=== PATIENT | male | born 1940 | race Caucasian/White ===

== ENCOUNTER 2019-11-01 09:10 | Outpatient (RCR) | payer MEDICARE, OTHER, SELFPAY ==
--- NOTE | 2019-11-01 10:21 | PTOPEVAL ---
PHYSICAL THERAPY EVALUATION AND PLAN OF CARE 11-01-2019 PT evaluation completed for the diagnosis of cervical and lumbar OA. The plan of treatment is for 2x/ week for 3 weeks. Thank you for referring Gelacio to [facility]. Please review, sign, date and return this plan of care GUEVARA. I agree with and certify that the following plan of care is medically necessary. Referring Physician Date Attending Provider: Hai Levin MD *PT Outpatient Evaluation Start: 11/01/19 09:26 Document 11/01/19 09:20 RUSTY (Rec: 11/01/19 10:21 RUSTY [id number]) Outpatient Past Medical History Neurological History Hx Neurological Disorders No Significant History Cardiovascular History Hx Hypertension Yes: meds Respiratory History Hx Other Respiratory Disorders Yes: non allergic rheuritis- Gastrointestinal History Hx Bowel Surgery Yes: colon removed due to cancer, 2 yr ago Hx Gall Bladder Disease Yes: gall bladder removed Genitourinary History Hx Genitourinary Disorders No Significant History Musculoskeletal History Hx Arthritis Yes: neck,back,knees,hands, every joint pain at times Hx Back Pain Yes Hx Other Musculoskeletal Disorders Yes: problems walking due to knees weak Endocrine History Hx Endocrine Disorders No Significant History HEENT History Hx Other HEENT Disorders Yes: rhinitis--coughing,mucous ,drainage Other History Hx Cancer Yes: prostate- radiation/ colon- surgical removal Evaluation Information Problem Diagnosis neck OA, lumbar OA Onset Jul 2019 Subjective Information gradual increase in pain, Query Text:As Reported By Patient/ worse with cold weather; xrays Family in the past; chiropractor treatment in past--electrical stim, manipulation of spine- helped pain; Diagnostic Tests X-Rays For This Problem No MRI For This Problem No Other Tests For This Problem No Prior Level of Function Activity Level (Last 3 Months) Occupation retired Cooking Yes Laundry Yes Shopping Yes Driving Yes Medications Home Meds (Include: OTC, RX, Vitamins, verapamil-gout PRN,lisinopril, Herbals, Dose, Route,and Frequency) allopurinol Query Text:Home Med Entries Will No Longer Recall From Past Visits. Home Meds Must Be Re-entered With Each Visit. Home Setting Home Type House,Multiple Levels
--- NOTE | 2019-11-01 10:29 | PCPTNOTE ---
pt was 20 minutes late for PT evaluation time.
--- NOTE | 2019-11-15 13:51 | PCPTNOTE ---
Patient called & cancelled scheduled appointment this date due to Covid 19
--- NOTE | 2019-11-28 11:35 | PCPTNOTE ---
PHYSICAL THERAPY DISCHARGE 11-28-2019 Attending Provider: Hai Levin MD Patient:Gelacio Burr Jr. Date of :1940 Mr. Burr has not returned for any further treatments since the evaluation on 11/01/2019, therefore he will be discharged at this time. The goals were not assessed. Thank you for referring Gelacio to [facility]. Please review, sign, date and return this discharge summary GUEVARA. I have been updated about the patient's current status and I agree with discharge from the above service at this time. Referring Physician Date
== END 2020-01-23 12:57 | disposition home or self-care (01) ==
LOC: ANHPT 09:10
PROVIDERS: PCP Family Medicine; Visit Provider Family Medicine
DX: M47.816 Spondylosis without myelopathy or radiculopathy, lumbar region (principal); M47.812 Spondylosis without myelopathy or radiculopathy, cervical region
CPT/HCPCS: 97110; 97162

== ENCOUNTER 2020-10-24 14:01 | Inpatient (IN) | payer MEDICARE, OTHER, SELFPAY ==
[2020-10-24] VITALS (11 sets, daily range): BP systolic 126–174; BP diastolic 48–84; PULSE 74–107; RESP 18–24; TEMP 36.4–37; O2SAT 99–100; BMI 34.2
--- NOTE | ~2020-10-24 | XR_ITS ---
EXAMINATION: XR chest 2V EXAM DATE: 10/24/2020 14:33 INDICATION: Chest pain 2 times a day. TECHNIQUE: Frontal and lateral projections of the chest obtained and reviewed. Comparison is made to prior examination from 07/20/2015. FINDINGS: Scattered regions of post infectious residua. Moderate chronic hyperinflation. No confluen t consolidation, pneumothorax or pleural effusion suspected. There are bony degenerative changes. The re is aortic arteriosclerosis. IMPRESSION: No acute cardiopulmonary findings. Reviewed, dictated and finalized at location A. PARK ATTENDANT
--- NOTE | ~2020-10-24 | US_ITS ---
EXAMINATION: US venous doppler [facility] DATE: 10/24/2020 17:42 INDICATION: Lower limb swelling TECHNIQUE: Ram scale images without and with compression and Doppler images of the bilateral lower e xtremity veins were obtained. COMPARISON: 01/08/2015 FINDINGS: The right common femoral vein, profunda femoral vein, femoral vein, popliteal vein, peroneal trunk, p osterior tibial veins, and greater saphenous vein are patent. The left common femoral vein, profunda femoral vein, femoral vein, popliteal vein, peroneal trunk, po sterior tibial veins, and greater saphenous vein are patent. A 3.4 cm Albright cyst is noted in the left popliteal fossa. IMPRESSION: 1. Patent bilateral lower extremity veins. No evidence of deep venous thrombosis. Reviewed, dictated and finalized at location A. OLEUM GEOLOGY FACULTY MEMBER IMPRESSION: 1. Patent bilateral lower extremity veins. No evidence of deep venous thrombosi s.
--- NOTE | ~2020-10-24 | US_ITS ---
EXAMINATION: US renal BI EXAM DATE: 10/25/2020 13:01 INDICATION: Elevated BUN/creatinine. TECHNIQUE: Multiple grayscale and Doppler images of the kidneys were obtained (by a technologist who performed the scan) and subsequently reviewed. Comparison is made to prior examination from 5. FINDINGS: There is bilateral renal cortical thinning, moderate cortical atrophy with large fatty hilu m. Right kidney: There is normal contour and echogenicity. It measures 10.0 x 5.3 x 5.0 centimeters. T here are no focal renal lesions identified. There is no hydronephrosis. Left kidney: There is normal contour and echogenicity. It measures 10.4 x 4.9 x 5.4 centimeters. Th ere are no focal renal lesions identified. There is no hydronephrosis. Bladder unremarkable. IMPRESSION: 1. Bilateral renal cortical thinning, atrophy. 2. No hydronephrosis. Reviewed, dictated and finalized at location A. ASSEMBLER
--- NOTE | 2020-10-24 14:03 | ED.CHESTPAIN ---
HPI - Chest Pain General Chief Complaint: Chest Pain Stated Complaint: cp Time Seen by Provider: 10/24/20 14:02 History of Present Illness HPI narrative: 80 yo male presents to the ED with chest pain. He reports that he has had intermittent left sided chest pain for more than one year. It was previously isolated to a very small at the lower left sternal border and the intensity was 2/10. Over the past few days it has spread out and the intensity has increased to 5/10. It is worse with activity, especially anything involving the upper body. No SOB, fever, cough. Related Data Home Medications Medication Instructions Recorded Confirmed acetaminophen 500 mg tablet 500 mg PO DIRECTED tablet 09/30/20 09/30/20 cholecalciferol (vitamin D3) 25 25 mcg PO DAILY 09/30/20 09/30/20 mcg (1,000 unit) capsule lisinopril 10 mg tablet 10 mg PO DAILY 09/30/20 09/30/20 pantoprazole 40 mg tablet,delayed 40 mg PO DAILY tablet 09/30/20 09/30/20 release verapamil 120 mg tablet 120 mg PO DAILY 09/30/20 09/30/20 Allergies Allergy/AdvReac Type Severity Reaction Status Date / Time codeine Allergy Unknown constipatio Verified 10/24/20 14:11 n ciprofloxacin AdvReac Unknown HE STATED Verified 10/24/20 14:11 HE HAD SOMETHING PRE OP AND WENT INTO SHOCK Review of Systems Review of Systems: All systems reviewed & are unremarkable except as noted in HPI and below Constitutional: Constitutional: Denies chills, Denies fever(s) and Denies weakness Eyes: Eyes: Reports no additional eye complaints ENT: Denies sore throat Cardiovascular: Cardiovascular: Reports chest pain and Denies radiating jaw, neck or arm pain Respiratory: Respiratory: Denies cough and Denies dyspnea Gastrointestinal: Gastrointestinal: Denies abdominal pain, Denies nausea and Denies vomiting Genitourinary: Genitourinary: Denies hematuria and Denies dysuria Musculoskeletal: Musculoskeletal: Denies back pain Neurologic: Denies confusion, Denies dizziness and Denies weakness [facility] Past Medical History Medical History (Updated 10/24/20 @ 16:41 by Zacarias Alvarado MD) Essential hypertension H/O colon cancer, stage I Malignant neoplasm of prostate Family History Family History (Updated 09/30/20 @ 10:30 by Camila Arana) Father Family history of lung cancer Father , Cancer No problems noted. Other Family history of dementia Social History Social History (System 10/18/19 @ 13:23 by Carolina Dumont) Smoking status: Former smoker Smoking end date: 08/23/99 Alcohol intake: current Gender identity (if verbalized by the patient): Male Exam Const: General: no acute distress and alert Nutritional Appearance: well nourished Orientation/consciousness: patient oriented x3 HENMT: Head: normal to inspection Neck: Neck: normal visual inspection Chest: Chest palpation & inspection: tenderness sternum Resp: Effort & Inspection: normal respiratory effort Auscultation: clear to auscultation bilaterally Cardio: Rate: regular rate Rhythm: regular rhythm GI: GI Palp: Yes Soft to palpation and No Tenderness to palpation present (GI) Skin: General skin exam: normal color Neuro: General: patient oriented x3, moves all extremities, no focal motor deficits and CN's II-XI intact bilaterally Speech: normal speech Extrem: General: edema bilateral (mild) Course Vital Signs Vital signs: Vital Signs Temperature 37.0 C 10/24/20 14:02 Pulse Rate 103 H 10/24/20 14:02 Respiratory Rate 18 10/24/20 14:02 Blood Pressure 174/57 H 10/24/20 14:02 Pulse Oximetry 100 10/24/20 14:02 Temperature 37.0 C 10/24/20 14:02 Pulse Rate 75 10/24/20 16:11 Respiratory Rate 20 10/24/20 16:11 Blood Pressure 126/48 L 10/24/20 15:47 Pulse Oximetry 99 10/24/20 15:47 MDM - Chest Pain MDM Narrative Medical decision making narrative: RANDI. significantly elevated potassium. Treatemnt a
--- NOTE | 2020-10-24 14:09 | ECG_ITS ---
Measurements Intervals [place] Rate: 93 P: 65 SD: 168 QRS: -61 QRSD: 137 T: 51 QT: 370 QTc: 462 Interpretive Statements SINUS RHYTHM ATRIAL AND VENTRICULAR PREMATURE COMPLEXES RIGHT BUNDLE BRANCH BLOCK LEFT ANTERIOR FASCICULAR BLOCK BASELINE ARTIFACT- AVF ABNORMAL ECG Electronically Signed On 10-24-2020 14:33:59 [employer] by Adrian Flor D.O.
[2020-10-24 14:55] LABS: Basophils Absolute Auto 0.1 K/mm3 (0.0-0.1); Basophils Percent Auto 1.3 % (0.2-1.2); Eosinophils Absolute Auto 0.1 K/mm3 (0-0.3); Eosinophils Percent Auto 1.7 % (0-4.4); Hematocrit 36.3 % (42.0-52.0); Hemoglobin 12.2 g/dL (14.0-18.0); Immature Granulocyte Absolute 0.06 K/mm3 (0.00-0.031); Lymphocytes Absolute Auto 1.27 K/mm3 (0.9-3.2); Lymphocytes Percent Auto 21.3 % (18.3-44.2); Mean Corpuscular HGB Conc 33.6 g/dl (32-36); Mean Corpuscular Hemoglobin 32.2 pg (26-34); Mean Corpuscular Volume 95.8 fl (80-100); Mean Platelet Volume 9.8 fl (7.4-10.4); Monocytes Absolute Auto 0.5 K/mm3 (0.1-0.6); Monocytes Percent Auto 7.5 % (2.6-8.5); Neutrophils Percent Auto 67.2 % (45.5-73.1); Platelet Count Result 203 k/mm3 (150-375); Red Blood Count 3.79 M/mm3 (4.6-6.20); Red Cell Distribution Width 13.2 % (11.5-14.5)
[2020-10-24 15:40] LABS: Prothrombin Time 13.6 Seconds (11.1-14.7)
[2020-10-24 15:41] LABS: Partial Thromboplastin Time 29.2 SECONDS (22.3-36.8)
[2020-10-24 15:44] LABS: Anion Gap 3 mmol/L (8-16); Blood Urea Nitrogen 43 mg/dL (9-20); Calcium 9.2 mg/dL (8.4-10.2); Carbon Dioxide 23 mmol/L (22-30); Chloride 112 mmol/L (98-107); Estimated Glomerular Filt Rate 26; Glucose 127 mg/dL (75-110); Potassium 6.1 mmol/L (3.4-5.0); Sodium 138 mmol/L (137-145)
[2020-10-24 15:54] LABS: Troponin I < 0.012 ng/mL (0.000-0.034)
[2020-10-24] MEDS: ALBUTEROL SULFATE NEB 2.5 MG/0.5 ML INH 10 MG INHALATION (16:09)
[2020-10-24] MEDS: DEXTROSE 50% 25 GM/50 ML SYRINGE IV PUSH (16:13)
[2020-10-24] MEDS: INSULIN HUMAN REGULAR (*BKC) 100 UNITS/ML 10 UNITS IV PUSH (16:13)
[2020-10-24] MEDS: CALCIUM GLUCONATE 1,000 MG/10 ML VIAL 1000 MG IV PUSH (16:14)
[2020-10-24] MEDS: SODIUM POLYSTYRENE SULFONONATE 15 GM/60 ML BTL PO (16:14)
--- NOTE | 2020-10-24 17:15 | PC.NURSE ---
Pt taken to ultrasound at this time
--- NOTE | 2020-10-24 18:28 | ADMGEN ---
This patient, Gelacio Burr Jr., was admitted to IMU Room 206-01. Patient/family oriented to hospital policies and general routines including ID bracelet, bed and alarms, visiting hours, pain management, procedures, bathroom and other care routines, personal items, smoking policy, room service/diet, and visiting hours. Information on how to activate the Rapid Response Team has been discussed. Patient/Family are encouraged to report perceived risks to care and to ask questions if they do not understand what they are told or what they should do.
--- NOTE | 2020-10-24 18:30 | PM.IMHP ---
H&P: HPI History of Present Illness Date/Time: 10/24/20 18:30 Chief Complaint: Chest pain. Narrative: This is a 80-year-old male with hypertension, chronic kidney disease stage 4, gout, and hypertension who presented to the emergency department earlier today via EMS from home for evaluation of chest pain. He admits to having sporadic midsternal chest discomfort for several months which is fleeting in nature, typically lasting 1 minutes or less before resolving without intervention. Over the last day and a half for so it has been a constant ?ache? in the same region and thus he came in for evaluation. He gives no alleviating factors and reports no help with Tylenol yesterday. It is worse with palpation on exam. He denies associated symptoms, specifically denying nausea, vomiting, sweats, and shortness of breath. He also denies pleuritic pain, palpitations, and racing heart however he has had several episodes of tachycardia into the 130s of which he is completely asymptomatic. He has no known history of cardiac disease, dysrhythmia, or thyroid disease. Of note, the patient's potassium was 6.1 on arrival to the emergency department and with further questioning he mentions that his lisinopril dose was cut in half recently and he was told to follow a low-potassium diet of which she states compliance. Review of Systems Review of Systems: Narrative: Twelve systems are reviewed with pertinent positives and negatives as per HPI. No syncope or near syncope. He has occasional ?gas pains? that improved with belching. He denies overt GERD and heartburn. No history of peptic ulcers. No recent cold or flu symptoms. Denies dysuria. No change in urine output. He has chronic lower extremity edema which is unchanged. Except as documented, all other systems were reviewed and are negative. [facility] Past Medical History Medical History (Updated 10/24/20 @ 22:22 by Selena Sol PA-C) Adenocarcinoma of cecum (~10/2016) Status post right hemicolectomy. Arthritis Chronic anemia Chronic kidney disease, stage 4 (severe) GFR of 28 in February 2020. Chronic rhinitis Essential hypertension Gastroesophageal reflux disease Gout Malignant neoplasm of prostate (~2008) Status post radiation. Shingles (~05/2020) Surgical History Surgical History History of laparoscopic cholecystectomy (~06/2015) History of right hemicolectomy (~11/2016) Family History Family History Father Family history of lung cancer Father , Cancer No problems noted. Other Family history of dementia Social History Social History (Updated 10/24/20 @ 22:20 by Selena Sol PA-C) Social History: Surrogate decision maker: Milagro Burr, sister. Code status: Full code. Smoking packs per day: 2 Smoking cigarettes per day: 40.0 Years smoked: 40 Smoking pack-years: 80.00 Smoking status: Former smoker Tobacco type: cigarettes Smoking end date: 08/23/99 Alcohol intake: current Drinks per week: 2 Substance use: never Additional living arrangements comments: Lives alone in [place]. Additional occupation/education comments: Retired. Gender identity (if verbalized by the patient): Male Spiritual care concerns: No Meds Home Medications and Allergies Home Medications Medication Instructions Recorded Confirmed Type lisinopril 10 mg tablet 10 mg PO DAILY 09/30/20 10/24/20 History pantoprazole 40 mg tablet,delayed 40 mg PO DAILY tablet 09/30/20 10/24/20 History release verapamil 120 mg PO DAILY 10/24/20 10/24/20 History Allergies Allergy/AdvReac Type Severity Reaction Status Date / Time codeine Allergy Unknown constipatio Verified 10/24/20 14:11 n ciprofloxacin AdvReac Unknown HE STATED Verified 10/24/20 14:11 HE HAD SOMETHING PRE OP AND WENT INTO SHOCK
--- NOTE | 2020-10-24 19:21 | ECG_ITS ---
Measurements Intervals [place] Rate: 92 P: VT: 0 QRS: -61 QRSD: 133 T: 52 QT: 372 QTc: 462 Interpretive Statements SINUS RHYTHM VENTRICULAR PREMATURE COMPLEXES RIGHT BUNDLE BRANCH BLOCK LEFT ANTERIOR FASCICULAR BLOCK BASELINE ARTIFACT- I, II, III, AVR, AVL, AVF, V1-V3 ABNORMAL ECG Electronically Signed On 10-25-2020 6:52:24 [employer] by Adrian Flor D.O.
[2020-10-24 19:28] LABS: Potassium 4.4 mmol/L (3.4-5.0)
[2020-10-24 19:36] LABS: Alanine Aminotransferase 16 U/L (4-50); Albumin Level 4.3 g/dL (3.5-5.1); Alkaline Phosphatase 79 U/L (38-126); Anion Gap 13 mmol/L (8-16); Aspartate Amino Transferase 23 U/L (17-59); Bilirubin,Total 0.7 mg/dL (0.2-1.3); Blood Urea Nitrogen 44 mg/dL (9-20); Calcium 10.3 mg/dL (8.4-10.2); Carbon Dioxide 18 mmol/L (22-30); Chloride 112 mmol/L (98-107); Estimated CRCL calculation 30 ml/min; Estimated Glomerular Filt Rate 28; Glucose 115 mg/dL (75-110); Magnesium 1.2 mg/dL (1.6-2.3); Sodium 143 mmol/L (137-145)
[2020-10-24 19:40] LABS: Troponin I 0.012 ng/mL (0.000-0.034)
[2020-10-24 22:29] LABS: Troponin I 0.012 ng/mL (0.000-0.034)
[2020-10-25] VITALS (19 sets, daily range): BP systolic 111–148; BP diastolic 41–65; PULSE 58–96; RESP 14–20; TEMP 36–36.4; O2SAT 97–100
--- NOTE | 2020-10-25 | ECHO_ITS ---
Patient Info Name: Gelacio Burr Age: 80 years : 1940 Gender: Male Ht: 70 in Wt: 235 lbs BSA: 2.33 m2 HR: 71 bpm BP: 116 / 47 mmHg Heart Rhythm: Sinus Rhythm Technical Quality: Good Exam Date: 10/25/2020 8:01 AM Exam Location: [facility] Pulmonary Patient Status: Outpatient Admit Date: 10/24/2020 Staff Ordering Physician: Selena Sol PA-C Sales Marketing Manager: Miguel Ángel Roberts, DAVDI, RT Attending Provider: Doug Kirk MD Referring Physician: Ebenezer ZULETA; Exam Type: CA echo doppler color flow Study Info Indications I10 - Essential (primary) hypertension R07.89 - Other chest pain Complete two-dimensional, color flow and Doppler transthoracic echocardiogram is performed with contrast to opacify the left ventricle and to improve the deliniation of the left ventricle endocardial borders. Strain analysis performed. Summary 1. There is mild concentric increased left ventricular wall thickness. 2. Left ventricular systolic function is normal, estimated at 65-70%. 3. Right ventricular chamber dimension is severely enlarged. 4. Definity contrast used to improve visualization. 5. Mild biatrial enlargement. 6. Sclerotic aortic valve which is not stenotic. Left Ventricle Left ventricular chamber dimension is normal. Left ventricular systolic function is normal, estimated at 65-70%. There is mild concentric increased left ventricular wall thickness. The left ventricular diastolic function is grade I diastolic dysfunction. Definity contrast used to improve visualization. Right Ventricle Right ventricular chamber dimension is severely enlarged. Left Atria Left atrial chamber dimension is mildly enlarged. Right Atria Right atrial chamber dimension is mildly enlarged. Aortic Valve The aortic valve is trileaflet. There is mild aortic valve sclerosis. Pulmonic Valve The pulmonic valve is not well visualized. Mitral Valve The mitral valve has normal leaflets. The mitral valve annulus is mildly calcified. Tricuspid Valve The tricuspid valve leaflets are not well visualized. Pericardium/Pleural The pericardium appears normal. Aorta The aortic root size at the sinus of Valsalva is normal. Left Ventricular Outflow Tract Name Value Normal LVOT 2D LVOT Diameter 2.1 cm LVOT Doppler LVOT Peak Gradient 3 mmHg LVOT Mean Gradient 1 mmHg LVOT VTI 22 cm LVOT VTI/AV VTI Ratio 0.8 LVOT Stroke Volume 74 ml LVOT CO 5.5 l/min LVOT CI 2.4 l/min/m2 Mitral Valve Name Value Normal MV Doppler MV Decel [place] 214 cm/s2 MV PHT 83 ms MV Area (PHT) 2.
[2020-10-25 05:16] LABS: Anion Gap 7 mmol/L (8-16); Blood Urea Nitrogen 41 mg/dL (9-20); Calcium 8.9 mg/dL (8.4-10.2); Carbon Dioxide 22 mmol/L (22-30); Chloride 111 mmol/L (98-107); Estimated CRCL calculation 29 ml/min; Estimated Glomerular Filt Rate 26; Glucose 107 mg/dL (75-110); Potassium 5.2 mmol/L (3.4-5.0); Sodium 140 mmol/L (137-145)
[2020-10-25 08:08] LABS: Magnesium 1.2 mg/dL (1.6-2.3)
[2020-10-25] MEDS: PERFLUTREN LIPID MICROSPHERES 1.5 ML VIAL DILUTED TO 10 ML TOTAL VOLUME IV PUSH (08:32)
[2020-10-25] MEDS: VERAPAMIL HCL ER 120 MG TABLET PO (08:45)
[2020-10-25] MEDS: HEPARIN SODIUM 5,000 UNITS/ML VIAL 5000 UNITS SUB-Q (08:45)
[2020-10-25] MEDS: PANTOPRAZOLE 40 MG TABLET PO (08:45)
--- NOTE | 2020-10-25 12:00 | PM.CNCAR ---
Assessment and Plan Additional Plan 80-year-old man with: Intermittent chest pain which is occurred in a somewhat chronic fashion. It had a more prolonged episode last night which prompted him to come to the emergency room. This is atypical of angina and there is no evidence of acute coronary syndrome. He also has asymptomatic paroxysmal atrial fibrillation. Long conversation with the patient in the consultation about the nature of this arrhythmia and the concerns. He has been unaware of this in the past and there has been no treatment started for this as of the time of this consultation. I am going to initiate treatment with sotalol 80 mg q.12 hours and start him on renally adjusted apixaban. His echocardiogram apparently has been done this morning I will have a chance to review that later. Anticipate keeping him in the hospital another 36-48 hours or so to ensure that he is not proarrhythmic to sotalol and assess his response to it. Josue Hernandez MD [facility] History of Present Illness History of Present Illness Consult date/time: 10/25/20 12:00 Consult reason: atrial fibrillation Reason For Visit: afib rvr Narrative: This is a 80-year-old man I am seeing today at the request of the hospitalist because of intermittent tachy arrhythmias noticed following admission to the hospital last evening. The patient came to [facility] Emergency Room last night from his home primarily because of chest pain. He says that the chest pain that he came in with has actually been going on for a long time possibly as long as a couple of years. He states that he has brief episodes of sharp central to sometimes left-sided chest pain that occurs if he takes a deep breath and or moves his trunk from side to side. He states he was not too concerned about this is that has been a chronic issue but last night he had an episode that was more prolonged and did not subside and so he came to the emergency department for evaluation. In the ED his electrocardiogram does not show any evidence of acute coronary syndrome. He has a sinus mechanism with bifascicular block but no acute ST segment changes. His troponin levels do not show any evidence of an acute coronary syndrome. They are slightly elevated but he does have chronic kidney disease. Since admission to the hospital however was noticed that at times he was tachycardic and for that reason I was consulted to see him today. The 12 lead EKGs on the chart demonstrates sinus mechanism but I did review the rhythm strips in detail and when he is tachycardic he is irregular and the rhythm strip appears to show evidence of atrial fibrillation. At the moment he is in sinus rhythm for a good deal of last night it appears he was in AFib with RVR. With respect to his arrhythmia he is not really symptomatic of this he is not aware of the tachycardia or palpitations or experiencing any other symptomatology when he is in it. He has never been told to have atrial fibrillation in the past he has really never been informed of any specific cardiac problem in the past. He does see a PCP for treatment of hypertension he also has chronic renal insufficiency which he has been told is probably the result of hypertension. His home medical regimen has consisted of lisinopril and verapamil for this. His verapamil has been continued in the hospital the lisinopril has been not resumed as of now. In this setting I am asked to see him in consultation. He offers no other complaints. He is a single man that is otherwise relatively active at his advanced age he maintains his own household activities not noticed any exertional chest pain pressure heaviness no sense of orthopnea PND edema palpitations or syncope. Review of Systems Constitutional: Constitutional: Reports no additional constitutional complaints Eyes: Eyes: Reports no additional eye complaints ENT: Reports system reviewed and no additional complaints, except as documented Cardiova
[2020-10-25] MEDS: SOTALOL HCL 80 MG TABLET PO ×2 (12:41→20:13)
--- NOTE | 2020-10-25 15:43 | PM.IMPN ---
Progress Note: A&P Assessment and Plan (1) Atypical chest pain: Code(s): R07.89 - Other chest pain Status: Acute Assessment and Plan: He has had sporadic test pain for quite some time although it has been constant for the last day, reproducible on exam. Monitor on telemetry overnight. Continue to trend troponins. Echocardiogram in a.m. 10/25/20 15:43 patient is 80-year-old male presented emergency department with complaint left-sided chest pain is found to have several episodes of tachycardia however patient is unable to feel the palpitation and has no complaint shortness of breath or dizziness other than complaint of chest which is chronic and persistent, and was seen by commodity industry analyst and suspect asymptomatic proximal atrial fibrillation and started the patient on sotalol 80 mg every 12 hours and and anticoagulation with Eliquis, Patient 3 sets of cardiac enzymes are negative and cardiac echo is pending, patient with a chronic kidney disease ultrasound showed cortical thickening and atrophy will consult direct support professional home health for further recommendation (2) Hyperkalemia: Code(s): E87.5 - Hyperkalemia Status: Acute Assessment and Plan: I reviewed his previous PCPs notes, the patient was post be on a low-potassium diet. Follow-up BMP 1 hour post treatment of hyperkalemia. Lisinopril on hold at this time. (3) Chronic kidney disease, stage 4 (severe): Code(s): N18.4 - Chronic kidney disease, stage 4 (severe) Status: Inactive Assessment and Plan: Previous primary care provider had documented CKD with a GFR of 28 in February 2020. GFR today is 26. Given above documentation, I suspect that he is at his baseline. Lisinopril has been placed on hold and should probably be discontinued given the hyperkalemia. (4) Essential hypertension: Code(s): I10 - Essential (primary) hypertension Status: Acute Assessment and Plan: Blood pressures were reviewed and they are not ideally controlled. Continue verapamil. Lisinopril on hold as detailed above. Trend blood pressures overnight; he will likely need another antihypertensive. (5) Gastroesophageal reflux disease: Code(s): K21.9 - Gastro-esophageal reflux disease without esophagitis Status: Inactive Assessment and Plan: No acute issues. Continue pantoprazole. (6) Paroxysmal tachycardia: Code(s): I47.9 - Paroxysmal tachycardia, unspecified Status: Acute Assessment and Plan: Patient is asymptomatic but does have episodes of tachycardia to the 130s. Check TSH and obtain cardiology consult. Subjective Date/time seen: 10/25/20 15:43 patient is 80-year-old male presented emergency department with complaint left-sided chest pain is found to have several episodes of tachycardia however patient is unable to feel the palpitation and has no complaint shortness of breath or dizziness other than complaint of chest which is chronic and persistent, and was seen by commodity industry analyst and suspect asymptomatic proximal atrial fibrillation and started the patient on sotalol 80 mg every 12 hours and and anticoagulation with Eliquis, Patient 3 sets of cardiac enzymes are negative and cardiac echo is pending, patient with a chronic kidney disease ultrasound showed cortical thickening and atrophy will consult direct support professional home health for further recommendation Review of Systems Review of Systems: All systems reviewed & are unremarkable except as noted in HPI and below Exam Narrative: Exam Narrative: Elderly frail Patient is comfortable, NAD HEENT: eyes are clear and none icteric LUNGS:CTA HEART: RR S1S2 ABD: BS+, Soft and nontender Lower extremities: no edema SKIN: nonjaundiced Neuro: grossly intact. Objective Data Vital Signs Vital Signs: Vital Signs - 24 hr 10/24/20 15:47 10/24/20 16:11 10/24/20 16:15 Temperature Pulse Rate 74 75 75 Respiratory Rate 18 20 20 Blood Pressure 126/48 L Pul
[2020-10-25] MEDS: APIXABAN 2.5 MG TABLET PO (20:13)
[2020-10-25] MEDS: MAGNESIUM SULF 2 GM/WATER 50ML 2 GM/50 ML BAG IVPB (23:29)
[2020-10-26] VITALS (20 sets, daily range): BP systolic 104–133; BP diastolic 48–97; PULSE 48–73; RESP 16–24; TEMP 36.3–36.9; O2SAT 97–100
[2020-10-26 05:32] LABS: Hematocrit 32.1 % (42.0-52.0); Hemoglobin 10.7 g/dL (14.0-18.0); Mean Corpuscular HGB Conc 33.3 g/dl (32-36); Mean Corpuscular Volume 96.1 fl (80-100); Mean Platelet Volume 8.9 fl (7.4-10.4); Platelet Count Result 161 k/mm3 (150-375); Red Blood Count 3.34 M/mm3 (4.6-6.20); White Blood Count 5.8 K/mm3 (4.5-10.0)
[2020-10-26 05:46] LABS: Albumin Level 3.2 g/dL (3.5-5.1); Anion Gap 6 mmol/L (8-16); Blood Urea Nitrogen 49 mg/dL (9-20); Calcium 8.9 mg/dL (8.4-10.2); Carbon Dioxide 21 mmol/L (22-30); Chloride 111 mmol/L (98-107); Estimated CRCL calculation 28 ml/min; Estimated Glomerular Filt Rate 25; Glucose 96 mg/dL (75-110); Magnesium 1.1 mg/dL (1.6-2.3); Phosphorus 3.9 mg/dL (2.5-4.5); Sodium 138 mmol/L (137-145)
[2020-10-26] MEDS: SOTALOL HCL 80 MG TABLET PO ×2 (09:01→20:15)
[2020-10-26] MEDS: PANTOPRAZOLE 40 MG TABLET PO (09:02)
[2020-10-26] MEDS: APIXABAN 2.5 MG TABLET PO ×2 (09:02→20:15)
--- NOTE | 2020-10-26 09:22 | PM.PNCARD ---
Progress Note: A&P Additional Plan 80-year-old man with hypertension and paroxysmal atrial fibrillation with which he appears to be essentially asymptomatic. He is now anticoagulated in taking sotalol for antiarrhythmic treatment. I did stop the verapamil that he was taking at home. Hypertension is for the moment very well controlled with just the sotalol. Plan to keep him in the hospital about another 24 hours a discharge tomorrow morning if there is no evidence of any proarrhythmia Josue Hernandez MD [facility] Subjective Date/time seen: Date of service: 10/26/20 09:22 Interval history: Follow-up visit in this 80-year-old man with: Paroxysmal atrial fibrillation which appears to be essentially asymptomatic. Patient was started on sotalol yesterday is maintaining sinus rhythm also started on renally dose adjusted apixaban. Patient has atypical chest wall pain which was the principal reason for his admission to the hospital this is not ischemic chest pain and I do not plan on conducting ischemia workup. Exam Const: General: comfortable and no acute distress Other: Pleasant man asymptomatic asking when he can be discharged HENMT: Mouth: Yes moist mucous membranes Eyes: Sclera: sclerae normal Pupils: Equal, round and reactive pupils present Neck: Neck: supple and no JVD Thyroid: thyroid normal Resp: Effort & Inspection: normal respiratory effort Auscultation: clear to auscultation bilaterally Cardio: Rate: regular rate Rhythm: regular rhythm GI: GI Palp: Yes Soft to palpation Auscultation: normal bowel sounds Skin: General skin exam: normal color Neuro: Cognition (Neuro): normal cognition Extrem: General: normal to inspection Objective Data Vital Signs Vital Signs: Vital Signs - 24 hr 10/25/20 10:00 10/25/20 12:00 10/25/20 12:41 Temperature 36.4 C L Pulse Rate 92 76 96 Respiratory Rate 20 Blood Pressure 148/58 H Pulse Oximetry 100 10/25/20 14:00 10/25/20 16:00 10/25/20 17:49 Temperature 36.2 C L Pulse Rate 58 L 58 L 60 Respiratory Rate 16 Blood Pressure 124/49 L Pulse Oximetry 99 10/25/20 20:00 10/25/20 20:13 10/25/20 21:56 Temperature 36.0 C L Pulse Rate 61 59 L 64 Respiratory Rate 18 Blood Pressure 111/65 Pulse Oximetry 97 10/25/20 23:32 10/25/20 23:40 10/26/20 00:00 Temperature 36.4 C L Pulse Rate 58 L 58 L 53 L Respiratory Rate 16 16 Blood Pressure 114/41 L Pulse Oximetry 99 99 10/26/20 01:46 10/26/20 03:38 10/26/20 03:40 Temperature 36.3 C L Pulse Rate 54 L 48 L 48 L Respiratory Rate 24 H 22 H Blood Pressure 109/48 L Pulse Oximetry 97 97 10/26/20 04:00 10/26/20 06:00 10/26/20 09:01 Temperature Pulse Rate 51 L 73 55 L Respiratory Rate Blood Pressure Pulse Oximetry Intake/Output Intake/Output: Intake & Output 10/23/20 10/24/20 10/25/20 10/26/20 23:59 23:59 23:59 23:59 Intake Total 1380 300 Output Total 580 Balance 1380 -280 Meds/Results Medications: Active Medications Generic Name Dose Route Start Last Admin Trade Name Roscoeq PRN Reason Stop Dose Admin Apixaban 2.5 mg 10/25/20 21:00 10/26/20 09:02 Apixaban 2.5 Mg Tablet PO 2.5 mg Q12HR EB Administration Pantoprazole Sodium 40 mg 10/25/20 09:00 10/26/20 09:02 Pantoprazole 40 Mg Tablet PO 40 mg DAILY EB Administration Sotalol HCl 80 mg 10/25/20 12:00 10/26/20 09:01 Sotalol Hcl 80 Mg Tablet PO 80 mg Q12HR EB Administration Radiology Results: ITS Impressions Chest X-Ray 10/24/20 14:38 IMPRESSION: No acute cardiopulmonary findings. Venous Doppler Study 10/24/20 17:52 IMPRESSION: 1. Patent bilateral lower extremity veins. No evidence of deep venous thrombosis. Renal Ultrasound 10/25/20 13:02 IMPRESSION: 1. Bilateral renal cortical thinning, atrophy. 2. No hydronephrosis. Labs Labs: Laboratory Results - last 24 hr 10/26/20 10/26/20 04:50
[2020-10-26] MEDS: MAGNESIUM SULFATE 3GM/D5W100ML 3 GM/100 ML BAG IVPB (09:34)
--- NOTE | 2020-10-26 11:16 | PM.IMPN ---
Progress Note: A&P Assessment and Plan (1) Atypical chest pain: Code(s): R07.89 - Other chest pain Status: Acute Assessment and Plan: 10/26/20 11:16 He has had sporadic test pain for quite some time although it has been constant for the last day, reproducible on exam. Monitor on telemetry overnight. Continue to trend troponins. Echocardiogram in a.m. 10/25/20 15:43 patient is 80-year-old male presented emergency department with complaint left-sided chest pain is found to have several episodes of tachycardia however patient is unable to feel the palpitation and has no complaint shortness of breath or dizziness other than complaint of chest which is chronic and persistent, and was seen by middle stitcher and suspect asymptomatic proximal atrial fibrillation and started the patient on sotalol 80 mg every 12 hours and and anticoagulation with Eliquis, Patient 3 sets of cardiac enzymes are negative and cardiac echo is pending, patient with a chronic kidney disease ultrasound showed cortical thickening and atrophy will consult fountain worker for further recommendation. 10/26 patient with a is symptomatic proximal atrial fibrillation was seen by middle stitcher started patient on sotalol and anticoagulated with Eliquis patient remains clinically stable rate is controlled he has no complaint of chest pain or palpitation, cardiac echo showed normal ejection fraction with grade 1 diastolic dysfunction, today middle stitcher recommending patient's remains clinically stable will discharge the patient home tomorrow. Patient with abnormal kidney ultrasound will consult Nephrology further recommendation. (2) Hyperkalemia: Code(s): E87.5 - Hyperkalemia Status: Acute Assessment and Plan: I reviewed his previous PCPs notes, the patient was post be on a low-potassium diet. Follow-up BMP 1 hour post treatment of hyperkalemia. Lisinopril on hold at this time. (3) Chronic kidney disease, stage 4 (severe): Code(s): N18.4 - Chronic kidney disease, stage 4 (severe) Status: Inactive Assessment and Plan: Previous primary care provider had documented CKD with a GFR of 28 in February 2020. GFR today is 26. Given above documentation, I suspect that he is at his baseline. Lisinopril has been placed on hold and should probably be discontinued given the hyperkalemia. (4) Essential hypertension: Code(s): I10 - Essential (primary) hypertension Status: Acute Assessment and Plan: Blood pressures were reviewed and they are not ideally controlled. Continue verapamil. Lisinopril on hold as detailed above. Trend blood pressures overnight; he will likely need another antihypertensive. (5) Gastroesophageal reflux disease: Code(s): K21.9 - Gastro-esophageal reflux disease without esophagitis Status: Inactive Assessment and Plan: No acute issues. Continue pantoprazole. (6) Paroxysmal tachycardia: Code(s): I47.9 - Paroxysmal tachycardia, unspecified Status: Acute Assessment and Plan: Patient is asymptomatic but does have episodes of tachycardia to the 130s. Check TSH and obtain cardiology consult. Subjective Date/time seen: 10/26/20 11:16 He has had sporadic test pain for quite some time although it has been constant for the last day, reproducible on exam. Monitor on telemetry overnight. Continue to trend troponins. Echocardiogram in a.m. 10/25/20 15:43 patient is 80-year-old male presented emergency department with complaint left-sided chest pain is found to have several episodes of tachycardia however patient is unable to feel the palpitation and has no complaint shortness of breath or dizziness other than complaint of chest which is chronic and persistent, and was seen by middle stitcher and suspect asymptomatic proximal atrial fibrillation and started the patient on sotalol 80 mg every 12 hours and and anticoagulation with Eliquis, Patient 3 sets of ca
[2020-10-26 11:51] LABS: Magnesium 2.1 mg/dL (1.6-2.3)
--- NOTE | 2020-10-26 11:58 | ECG_ITS ---
Measurements Intervals [place] Rate: 57 P: 43 [place]: 195 QRS: -48 QRSD: 145 T: -10 QT: 468 QTc: 456 Interpretive Statements SINUS BRADYCARDIA WITH SINUS ARRHYTHMIA RIGHT BUNDLE BRANCH BLOCK LEFT ANTERIOR FASCICULAR BLOCK ABNORMAL ECG Electronically Signed On 10-26-2020 15:05:19 FUNDS TRANSFER CLERK by Adrian Flor D.O.
--- NOTE | 2020-10-26 22:15 | ECG_ITS ---
Measurements Intervals [place] Rate: 54 P: [place]: 0 QRS: -49 QRSD: 141 T: -15 QT: 443 QTc: 423 Interpretive Statements SINUS BRADYCARDIA WITH MARKED SINUS ARRHYTHMIA RIGHT BUNDLE BRANCH BLOCK LEFT ANTERIOR FASCICULAR BLOCK BASELINE ARTIFACT- I, II, III, AVR, AVL, AVF ABNORMAL ECG Electronically Signed On 10-27-2020 7:37:44 [employer]AND LEASING INFORMATION CLERK by Adrian Flor D.O.
[2020-10-27] VITALS (12 sets, daily range): BP systolic 128–142; BP diastolic 46–59; PULSE 51–82; RESP 16–22; TEMP 36.1–37.3; O2SAT 98–100
[2020-10-27 06:32] LABS: Hematocrit 34.7 % (42.0-52.0); Hemoglobin 11.6 g/dL (14.0-18.0); Mean Corpuscular HGB Conc 33.4 g/dl (32-36); Mean Corpuscular Hemoglobin 31.4 pg (26-34); Mean Platelet Volume 8.4 fl (7.4-10.4); Platelet Count Result 144 k/mm3 (150-375); Red Blood Count 3.69 M/mm3 (4.6-6.20); Red Cell Distribution Width 12.7 % (11.5-14.5); White Blood Count 6.3 K/mm3 (4.5-10.0)
[2020-10-27 06:44] LABS: Albumin Level 3.5 g/dL (3.5-5.1); Anion Gap 4 mmol/L (8-16); Blood Urea Nitrogen 46 mg/dL (9-20); Carbon Dioxide 24 mmol/L (22-30); Chloride 109 mmol/L (98-107); Estimated CRCL calculation 29 ml/min; Estimated Glomerular Filt Rate 26; Glucose 112 mg/dL (75-110); Magnesium 1.5 mg/dL (1.6-2.3); Phosphorus 3.7 mg/dL (2.5-4.5); Potassium 5.8 mmol/L (3.4-5.0); Sodium 137 mmol/L (137-145)
[2020-10-27] MEDS: SODIUM POLYSTYRENE SULFONONATE 15 GM/60 ML BTL PO (09:40)
[2020-10-27] MEDS: SOTALOL HCL 80 MG TABLET PO (09:41)
[2020-10-27] MEDS: PANTOPRAZOLE 40 MG TABLET PO (09:42)
[2020-10-27] MEDS: APIXABAN 2.5 MG TABLET PO (09:42)
--- NOTE | 2020-10-27 09:52 | PM.CNNEP ---
Assessment and Plan Assessment and plan (1) Chronic kidney disease, stage 4 (severe): Code(s): N18.4 - Chronic kidney disease, stage 4 (severe) Status: Acute Assessment and Plan: The patient has chronic kidney disease. He had a creatinine of 1.7 back in 2017. Now his creatinine is 2.4. His PCP has been following this closely. The patient does not take any nonsteroidal anti-inflammatory agents. He was on lisinopril but his potassium is high so this has been stopped. His renal ultrasound shows cortical thinning. This is certainly CKD and I doubt if there is an acute component. Etiology of the CKD is most likely hypertension. He does have pre diabetes. Does this yeast infection suggest that this is more than just pre diabetes? There other causes of kidney disease as well such as glomerulonephritis, infiltration, or obstruction at [facility]. He has already had a renal ultrasound which rules out obstruction. Will check serology and immunofixation. Will check quantitative urine protein excretion. The patient needs to follow up with me concerning the labs in my office. He does not need to stay here for the results of these tests. (2) Hyperkalemia: Code(s): E87.5 - Hyperkalemia Status: Acute Assessment and Plan: Patient's potassium is a bit high here. I agree with holding the lisinopril for now. (3) Essential hypertension: Code(s): I10 - Essential (primary) hypertension Status: Acute Assessment and Plan: Blood pressure is doing pretty well (4) Pre-diabetes: Code(s): R73.03 - Prediabetes Status: Acute Assessment and Plan: Will check an A1c (5) Paroxysmal tachycardia: Code(s): I47.9 - Paroxysmal tachycardia, unspecified Status: Acute Assessment and Plan: He is getting loaded with sotalol (6) Malignant neoplasm of prostate: Onset Date: ~2008 Code(s): C61 - Malignant neoplasm of prostate Status: Acute Assessment and Plan: JORGE (7) H/O colon cancer, stage I: Code(s): Z85.038 - Personal history of other malignant neoplasm of large intestine Status: Acute Assessment and Plan: JORGE (8) Chronic GERD: Code(s): K21.9 - Gastro-esophageal reflux disease without esophagitis Status: Acute Assessment and Plan: On a PPI History of Present Illness Reason for Consult Consult date: 10/27/20 Chief Complaint Chief complaint: afib rvr History of Present Illness Narrative: Gelacio is a very pleasant 80-year-old gentleman who has multiple medical problems including hypertension, pre diabetes, gout, cardiac arrhythmias, GERD, anemia, prostate cancer JORGE, colon cancer JORGE. The patient was admitted a few days ago because of chest pain and rapid heartbeat turns out that the chest pain was heart beats. He has seen by Cardiology who is doing a Sotalol load. No arrhythmias take place he is close to discharge. On admission the patient had a creatinine of 2.4 suggesting CKD stage 4. In 2017 the patient had a creatinine of around 1.7. He is aware of his kidney disorder. His primary care doctor has been following this closely. He has never seen a concrete pointer in the past. The patient denies any bloody urine, foamy urine, kidney stones, or bladder infections. He does not have pain with urination. He does not take nonsteroidal anti-inflammatory agents. The patient has hypertension. He has had this the years and has been pretty well controlled with verapamil and lisinopril. The patient has pre diabetes. He says his sugars run about 150. He is not on any medication but he watch his sugars in his diet. The patient has some sort of yeast infection He has aches and pains occasionally. His chronic nonallergic rhinitis. Review of Systems Constitutional: Constitutional: Reports no additional constitutional complaints Eyes: Eyes: Reports no additional eye complaints ENT: Reports syst
--- NOTE | 2020-10-27 10:22 | PM.PNCARD ---
Progress Note: A&P Additional Plan 80-year-old man with: Longstanding hypertension with some chronic kidney disease now with paroxysmal atrial fibrillation as well. He has responded well to sotalol. Or to empirically lower the dose to 40 mg q.12 hours because of his chronic kidney disease. Other than this he is stable for discharge from a cardiac perspective. I will arrange the office to contact him next week to for office follow-up. Josue Hernandez MD [facility] Subjective Date/time seen: Id of service: 10/27/20 10:22 Interval history: Follow-up visit in this 80-year-old man with paroxysmal atrial fibrillation. Also has history of atypical sounding chest pain hypertension and chronic kidney disease. Asymptomatic this morning feeling well other than complaining not being able to get a good night sleep in the hospital. Exam Const: General: comfortable and no acute distress HENMT: Mouth: Yes moist mucous membranes Eyes: Sclera: sclerae normal Pupils: Equal, round and reactive pupils present Neck: Neck: supple and no JVD Resp: Effort & Inspection: normal respiratory effort Other: Patient has a few expiratory rhonchi Cardio: Rate: regular rate Rhythm: regular rhythm GI: GI Palp: Yes Soft to palpation Auscultation: normal bowel sounds Skin: General skin exam: normal color Neuro: Cognition (Neuro): normal cognition Extrem: General: normal to inspection Objective Data Vital Signs Vital Signs: Vital Signs - 24 hr 10/26/20 12:00 10/26/20 14:00 10/26/20 16:00 Temperature 36.9 C 36.9 C Pulse Rate 53 L 52 L 51 L Respiratory Rate 18 18 Blood Pressure 129/52 L 133/59 L Pulse Oximetry 100 100 10/26/20 18:00 10/26/20 19:42 10/26/20 20:00 Temperature 36.3 C L Pulse Rate 53 L 61 61 Respiratory Rate 16 16 Blood Pressure 112/97 H Pulse Oximetry 100 100 10/26/20 20:15 10/26/20 21:24 10/26/20 23:26 Temperature 36.3 C L Pulse Rate 59 L 55 L 58 L Respiratory Rate 18 Blood Pressure 128/50 L Pulse Oximetry 100 10/26/20 23:44 10/27/20 00:00 10/27/20 02:00 Temperature Pulse Rate 58 L 51 L 67 Respiratory Rate 18 Blood Pressure Pulse Oximetry 100 10/27/20 03:47 10/27/20 04:00 10/27/20 05:56 Temperature 36.1 C L Pulse Rate 71 66 63 Respiratory Rate 16 16 Blood Pressure 135/55 L Pulse Oximetry 99 99 10/27/20 08:00 10/27/20 08:33 10/27/20 09:41 Temperature 37.1 C Pulse Rate 58 L 62 58 L Respiratory Rate 22 H 22 H Blood Pressure 142/59 H Pulse Oximetry 100 100 Intake/Output Intake/Output: Intake & Output 10/24/20 10/25/20 10/26/20 10/27/20 23:59 23:59 23:59 23:59 Intake Total 1380 1420 790 Output Total 1230 685 Balance 1380 190 105 Meds/Results Medications: Active Medications Generic Name Dose Route Start Last Admin Trade Name Freq PRN Reason Stop Dose Admin Apixaban 2.5 mg 10/25/20 21:00 10/27/20 09:42 Apixaban 2.5 Mg Tablet PO 2.5 mg Q12HR EB Administration Diclofenac Sodium 1 applic 10/27/20 10:03 Diclofenac Sodium 1% 100 Gm Gel (*Bkc) TOPICAL Q4H PRN ARTHRITIS PAIN Magnesium Oxide 400 mg 10/27/20 09:00 Magnesium Oxide 400 Mg Tablet PO QAM EB Pantoprazole Sodium 40 mg 10/25/20 09:00 10/27/20 09:42 Pantoprazole 40 Mg Tablet PO 40 mg DAILY EB Administration Sotalol HCl 40 mg 10/27/20 21:00 Sotalol Hcl 40 Mg Tablet PO Q12HR [facility] Radiology Results: ITS Impressions Chest X-Ray 10/24/20 14:38 IMPRESSION: No acute cardiopulmonary findings. Venous Doppler Study 10/24/20 17:52 IMPRESSION: 1. Patent bilateral lower extremity veins. No evidence of deep venous thrombosis. Renal Ultrasound 10/25/20 13:02 IMPRESSION: 1. Bilateral renal cortical thinning, atrophy. 2. No hydronephrosis. Labs Labs: Laboratory Results - last 24 hr 10/26/20 10/27/20 10/27/20 11:11 06:21 06:21 WBC 6.3 RBC 3.69 L Hgb
[2020-10-27 11:54] LABS: Complement C3 94 mg/dL (88-165)
[2020-10-27 11:58] LABS: Parathyroid Intact 85.6 pg/mL (7.5-53.5)
[2020-10-27 11:59] LABS: Erythrocyte Sedimentation Rate 92 mm/hr (0-20)
[2020-10-27] MEDS: MAGNESIUM SULF 2 GM/WATER 50ML 2 GM/50 ML BAG IVPB (11:59)
[2020-10-27] MEDS: DICLOFENAC SODIUM 1% 100 GM GEL (*BKC) 1 APPLIC TOPICAL (12:00)
--- NOTE | 2020-10-27 12:21 | ECG_ITS ---
Measurements Intervals [place] Rate: 52 P: 42 [place]: 175 QRS: -51 QRSD: 134 T: -16 QT: 422 QTc: 396 Interpretive Statements SINUS BRADYCARDIA ATRIAL PREMATURE COMPLEX RIGHT BUNDLE BRANCH BLOCK LEFT ANTERIOR FASCICULAR BLOCK ABNORMAL ECG Electronically Signed On 10-27-2020 14:24:32 MANAGER STRATEGIC MARKETING by Adrian Flor D.O.
[2020-10-27] MEDS: MAGNESIUM OXIDE 400 MG TABLET PO (13:24)
[2020-10-27 13:34] LABS: Vitamin D 25 Hydroxy 46.9 ng/mL
[2020-10-27 13:59] LABS: Total Protein Urine Random 8 mg/dL
[2020-10-27 14:40] LABS: Potassium 4.9 mmol/L (3.4-5.0)
--- NOTE | 2020-10-27 15:16 | PM.DS ---
DS: Admitting Diagnosis Admitting Diagnosis Admitting Diagnosis: Chief Complaint: Chest pain. DS: Discharge Diagnosis Discharge Diagnosis (1) Atypical chest pain: Code(s): R07.89 - Other chest pain Status: Acute Assessment and Plan: 10/26/20 11:16 He has had sporadic test pain for quite some time although it has been constant for the last day, reproducible on exam. Monitor on telemetry overnight. Continue to trend troponins. Echocardiogram in a.m. 10/25/20 15:43 patient is 80-year-old male presented emergency department with complaint left-sided chest pain is found to have several episodes of tachycardia however patient is unable to feel the palpitation and has no complaint shortness of breath or dizziness other than complaint of chest which is chronic and persistent, and was seen by drop clipper and suspect asymptomatic proximal atrial fibrillation and started the patient on sotalol 80 mg every 12 hours and and anticoagulation with Eliquis, Patient 3 sets of cardiac enzymes are negative and cardiac echo is pending, patient with a chronic kidney disease ultrasound showed cortical thickening and atrophy will consult vocational guidance counselor for further recommendation. 10/26 patient with a is symptomatic proximal atrial fibrillation was seen by drop clipper started patient on sotalol and anticoagulated with Eliquis patient remains clinically stable rate is controlled he has no complaint of chest pain or palpitation, cardiac echo showed normal ejection fraction with grade 1 diastolic dysfunction, today drop clipper recommending patient's remains clinically stable will discharge the patient home tomorrow. Patient with abnormal kidney ultrasound will consult Nephrology further recommendation. 10/27 Patient potassium is elevated and was given Kalexate, repeat K was close to normal, patient will follow up with his primary care provider in 3 days for repeat check of his potassium levels, Patient was seen by his drop clipper for A. Fib was started on Satalol 40m BID, will follow up as scheduled, patient with CKD and abnormal renal US, will follow up with Dr. Luo. patient is clinically stable, will discharge home today. Patient needs repeat labs in 3 days patient needs to check with primary care provider, patient is instructed to eat low potassium diet, Patient to follow up with his drop clipper and Dr. Luo as schedule, patient is instructed in any symptoms redevelop to go to nearest ER. (2) Hyperkalemia: Code(s): E87.5 - Hyperkalemia Status: Acute Assessment and Plan: I reviewed his previous PCPs notes, the patient was post be on a low-potassium diet. Follow-up BMP 1 hour post treatment of hyperkalemia. Lisinopril on hold at this time. (3) Chronic kidney disease, stage 4 (severe): Code(s): N18.4 - Chronic kidney disease, stage 4 (severe) Status: Acute Assessment and Plan: Previous primary care provider had documented CKD with a GFR of 28 in February 2020. GFR today is 26. Given above documentation, I suspect that he is at his baseline. Lisinopril has been placed on hold and should probably be discontinued given the hyperkalemia. (4) Essential hypertension: Code(s): I10 - Essential (primary) hypertension Status: Acute Assessment and Plan: Blood pressures were reviewed and they are not ideally controlled. Continue verapamil. Lisinopril on hold as detailed above. Trend blood pressures overnight; he will likely need another antihypertensive. (5) Gastroesophageal reflux disease: Code(s): K21.9 - Gastro-esophageal reflux disease without esophagitis Status: Inactive Assessment and Plan: No acute issues. Continue pantoprazole. (6) Paroxysmal tachycardia: Code(s): I47.9 - Paroxysmal tachycardia, unspecified Status: Acute Assessment and Plan: Patient is asymptomatic but does have episodes of tachycardia to the 130s. Check T
[2020-10-27 18:43] LABS: Creatinine Urine 113.9 mg/dL; Ur Ttl Prot Creatinine Ratio 0.07 mg/mg (0-0.20)
[2020-10-30 13:56] LABS: Complement Total CH50 >60 U/mL (31-60)
[2020-10-31 17:53] LABS: Kappa\\Lambda Light Chains 1.66 (0.26-1.65); Lambda Light Chain 34.5 mg/L (5.7-26.3)
== END 2020-10-27 16:15 | disposition home or self-care (01) | DRG 309 ==
LOC: ANHED 14:15 → ANHIMU 17:07
PROVIDERS: Internal Medicine Nephrology; Physician Assistant; Admitting Provider Family Medicine; Emergency Provider Emergency Medicine; PCP Internal Medicine; Visit Provider Family Medicine
DX: I48.91 Unspecified atrial fibrillation (principal); N18.4 Chronic kidney disease, stage 4 (severe); E87.5 Hyperkalemia; I12.9 Hypertensive chronic kidney disease with stage 1 through stage 4 chronic kidney disease, or unspecified chronic kidney disease; I47.9 Paroxysmal tachycardia, unspecified
CPT/HCPCS: 36415; 71046; 76775; 80048; 80053; 80069; 82306; 82570; 83735; 83883; 83970; 84132; 84156; 84443; 84484; 85025; 85027; 85610; 85652; 85730; 86038; 86160; 86162; 86334; 86335; 93005; 93306; 93970; 94640; 96372; 96374; 96375; 99285; A9270; G0378; J0610; J1644; J1815; J3475; Q9957

== ENCOUNTER 2020-10-30 10:40 | Outpatient (CLI) | payer MEDICARE, OTHER, SELFPAY ==
[2020-10-30 11:43] LABS: Potassium 5.5 mmol/L (3.4-5.0)
[2020-10-30 11:52] LABS: Anion Gap 5 mmol/L (8-16); Blood Urea Nitrogen 51 mg/dL (9-20); Calcium 9.2 mg/dL (8.4-10.2); Carbon Dioxide 25 mmol/L (22-30); Chloride 111 mmol/L (98-107); Estimated Glomerular Filt Rate 26; Glucose 120 mg/dL (75-110); Sodium 141 mmol/L (137-145)
== END 2020-10-30 10:41 | disposition home or self-care (01) ==
LOC: ANHLAB 10:42
PROVIDERS: PCP Internal Medicine; Visit Provider Family Medicine
DX: N18.4 Chronic kidney disease, stage 4 (severe) (principal); E87.5 Hyperkalemia
CPT/HCPCS: 36415; 80048

== ENCOUNTER → 2020-12-12 13:15 | Outpatient (CLI) | payer MEDICARE, OTHER, SELFPAY ==
--- NOTE | ~2020-12-12 | XR_ITS ---
EXAMINATION: XR knee LT min 4V DATE: 12/12/2020 13:56 INDICATION: Left knee pain. TECHNIQUE: 4 views of left knee were obtained. COMPARISON: None. FINDINGS: Bone alignment is normal. No fracture. There is moderate osteoarthritis of medial compartme nt and mild osteoarthritis of lateral and patellofemoral compartments. There is chondrocalcinosis of the menisci. No knee joint effusion. IMPRESSION: 1. Moderate left knee osteoarthritis. Reviewed, dictated and finalized at location B.
--- NOTE | ~2020-12-12 | XR_ITS ---
EXAMINATION: XR knee RT min 4V DATE: 12/12/2020 13:57 INDICATION: Right knee pain. TECHNIQUE: 4 views of right knee were obtained. COMPARISON: Right knee radiographs 09/12/2005 FINDINGS: Bone alignment is normal. No fracture. There is severe osteoarthritis of lateral compartmen t and mild osteoarthritis of medial and patellofemoral compartments. There is a small knee joint effu zabrina with loose bodies. IMPRESSION: 1. Severe right knee osteoarthritis. 2. Small right knee joint effusion with loose bodies. Reviewed, dictated and finalized at location B.
== END ==
PROVIDERS: PCP Internal Medicine; Visit Provider Family Medicine
DX: M17.0 Bilateral primary osteoarthritis of knee (principal); M25.461 Effusion, right knee; M23.41 Loose body in knee, right knee
CPT/HCPCS: 73564

== ENCOUNTER 2021-04-14 13:51 | Outpatient (CLI) | payer MEDICARE, OTHER, SELFPAY ==
--- NOTE | ~2021-04-14 | US_ITS ---
EXAMINATION: US soft tissue head and neck DATE: 04/14/2021 14:24 INDICATION: Localized enlarged lymph nodes in the neck. TECHNIQUE: Multiple grayscale and Doppler ultrasound images of the neck were obtained. COMPARISON: None FINDINGS: There are normal lymph nodes in the patient's areas of concern in the neck. IMPRESSION: 1. No abnormal mass or lymphadenopathy. Reviewed, dictated and finalized at location A.
== END 2021-04-14 13:52 | disposition home or self-care (01) ==
PROVIDERS: PCP Internal Medicine; Visit Provider Internal Medicine
DX: R59.0 Localized enlarged lymph nodes (principal)
CPT/HCPCS: 76536

== ENCOUNTER 2021-04-21 12:59 | Outpatient (CLI) | payer MEDICARE, OTHER, SELFPAY ==
--- NOTE | ~2021-04-21 | US_ITS ---
EXAMINATION: US venous doppler [facility] DATE: 04/21/2021 13:35 INDICATION: Bilateral lower limb swelling TECHNIQUE: Ram scale images without and with compression and Doppler images of the bilateral lower e xtremity veins were obtained. COMPARISON: 10/24/2020 FINDINGS: The right common femoral vein, profunda femoral vein, femoral vein, popliteal vein, peroneal trunk, p osterior tibial veins, and greater saphenous vein are patent. The left common femoral vein, profunda femoral vein, femoral vein, popliteal vein, peroneal trunk, po sterior tibial veins, and greater saphenous vein are patent. IMPRESSION: 1. Patent bilateral lower extremity veins. No evidence of deep venous thrombosis. Reviewed, dictated and finalized at location A. IMPRESSION: 1. Patent bilateral lower extremity veins. No evidence of deep venous thrombosi s.
== END 2021-04-21 13:00 | disposition home or self-care (01) ==
LOC: ANHIMG 13:02
PROVIDERS: PCP Internal Medicine; Visit Provider Internal Medicine Nephrology
DX: N18.4 Chronic kidney disease, stage 4 (severe) (principal); M79.89 Other specified soft tissue disorders
CPT/HCPCS: 93970

== ENCOUNTER 2021-09-01 07:59 | Outpatient (CLI) | payer MEDICARE, OTHER, SELFPAY ==
[2021-09-01 10:01] LABS: Add Urine Microscopic? NO; Appearance Urine Clear (Clear); Bilirubin Urine Negative (Negative); Blood Urine Negative (Negative); Color Urine Yellow (Yellow); Glucose Urine UA Negative (Negative); Ketones Urine Negative (Negative); Leukocyte Esterase Ur Negative LEU/UL (Negative); Nitrate Urine Negative (Negative); Protein Urine Negative (Negative); Specific Grav Ur 1.014 (1.001-1.035); Urobilinogen Urine Negative mg/dL (<2.0)
[2021-09-01 10:06] LABS: Urine Cotinine NEGATIVE
[2021-09-01 10:08] LABS: INR 1.1; Prothrombin Time 14.1 Seconds (11.1-14.7)
[2021-09-01 10:09] LABS: Partial Thromboplastin Time 30.3 SECONDS (22.3-36.8)
[2021-09-01 10:10] LABS: Albumin Level 4.3 g/dL (3.5-5.1); Anion Gap 10 mmol/L (8-16); Blood Urea Nitrogen 32 mg/dL (9-20); Calcium 9.6 mg/dL (8.4-10.2); Carbon Dioxide 23 mmol/L (22-30); Chloride 108 mmol/L (98-107); Estimated Glomerular Filt Rate 34; Glucose 123 mg/dL (65-110); Sodium 141 mmol/L (137-145)
[2021-09-01 10:27] LABS: Hemoglobin A1C 5.4 % (<5.7)
[2021-09-01 10:30] LABS: Basophils Absolute Auto 0.1 K/mm3 (0.0-0.1); Basophils Percent Auto 1.1 % (0.2-1.2); Eosinophils Absolute Auto 0.1 K/mm3 (0-0.3); Eosinophils Percent Auto 2.2 % (0-4.4); Hematocrit 40.5 % (42.0-52.0); Hemoglobin 13.7 g/dL (14.0-18.0); Immature Granulocyte Absolute 0.06 K/mm3 (0.00-0.031); Immature Granulocyte Percent A 0.9 % (0-0.5); Lymphocytes Absolute Auto 1.63 K/mm3 (0.9-3.2); Lymphocytes Percent Auto 25.6 % (18.3-44.2); Mean Corpuscular HGB Conc 33.8 g/dl (32-36); Mean Corpuscular Hemoglobin 31.9 pg (26-34); Mean Corpuscular Volume 94.2 fl (80-100); Mean Platelet Volume 8.8 fl (7.4-10.4); Monocytes Absolute Auto 0.5 K/mm3 (0.1-0.6); Monocytes Percent Auto 8.3 % (2.6-8.5); Neutrophils Absolute Auto 3.9 K/mm3 (1.3-6.7); Neutrophils Percent Auto 61.9 % (45.5-73.1); Platelet Count Result 179 k/mm3 (150-375); Red Cell Distribution Width 13.8 % (11.5-14.5); White Blood Count 6.4 K/mm3 (4.5-10.0)
== END 2021-09-01 08:00 | disposition home or self-care (01) ==
LOC: ANHSURGERY 08:01
PROVIDERS: PCP Internal Medicine; Visit Provider Orthopaedic Surgery
DX: Z01.818 Encounter for other preprocedural examination (principal); M17.11 Unilateral primary osteoarthritis, right knee
CPT/HCPCS: 80048; 80307; 81003; 82040; 83036; 85025; 85610; 85730; 86850; 86900; 86901; 87081

== ENCOUNTER 2021-09-10 00:46 | Day surgery (SDC) | payer MEDICARE, OTHER, SELFPAY ==
[2021-09-01 08:35] VITALS: BP 177/78; PULSE 54; RESP 18; TEMP 36.8; O2SAT 95; BMI 33.8
--- NOTE | 2021-09-01 08:49 | PC.NURSE ---
Report to the Outpatient Waiting Room, entrance under the green pavilion located off [facility], at time __6:00AM on date __09/10/21 . OR Time: ____7:30AM____. - You and your visitor will be asked a series of questions to screen for COVID 19 for your protection. - A mask is required within the hospital. - Only one visitor is allowed at this time. Patient visitors will be guided where to wait when not with patient. Preoperative COVID Testing Requirements: No COVID Test needed if: (proof is required; if not received patient will have Rapid Test prior to entry) - Patient has received COVID Vaccine at least 14 days prior to procedure date or - Patient has positive COVID test result within last 90 days of surgery date. COVID Test needed if above criteria is not met If not COVID vaccinated a COVID test must be conducted within 72 hours of surgery and patient is asked to isolate self from time of testing until procedure. You will go to the [employer] [facility] for your COVID testing. The [employer] [facility] is located at the corner of [address] [facility]. You will only be called if COVID results are positive and your surgeon may reschedule your elective surgery date. Patients may have clear liquids (water, carbonated beverages, clear teas, apple juice) until 3 hours prior to surgery with a maximum of 20 ounces. - No food from midnight until time of surgery - Infants may have breast milk until 4 hours before surgery, infant formula 6 hours prior to surgery. - Children will be allowed to drink immediately following surgery. If applicable, please bring a bottle or sippy cup to assist with drinking. Juice, water, soda, and popsicles are readily available. For infants on formula, please bring formula the day of surgery. Pacifiers are allowed. Take the following medications with a SIP of water the morning of surgery: ____SOTALOL Medications to discontinue per physician ELIQUIS PER DR ZHANG, VITAMINS/SUPPLEMENTS 3 DAYS PRE-OP Date to take last dose____09/06/20 Please no make-up, nail malaysian, hairspray, perfume, deodorant, or body powder the day of surgery. No jewelry (including any body piercings) or valuables the day of surgery, leave them at home. Please take a shower or bath the night before, or the morning of, surgery with an antibacterial soap. Wear comfortable, loose fitting clothing. Children are encouraged to wear pajamas. - Jewelry must be removed prior to entering the operating room. Rings and piercings that are not removed may be cut off. - The hospital will not accept responsibility for valuables. DAILY HIBICLENS SHOWER X3 DAYS PRE-OP - Please leave all valuables, including medications, at home the day of surgery. If you are going home after surgery, a licensed maintenance truck driver must drive you home. - NO public transportation without another adult. - We recommend that an adult stay with you for 24 hours following discharge. - We also recommend that you do not drive, make important decision, drink alcoholic beverages, or take any drugs that were not prescribed by your health care provider for at least 24 hours after your discharge time. For Pediatric surgeries, we recommend two adults accompany the child home (only one inside the building at this time). Follow any additional instructions given to you from your surgeon. Telephone instructions given to __PATIENT and asked if any additional questions and then verbalized understanding. Patient advised to call surgeon office or pre surgery nurse liaison [phone] if any additional questions.
--- NOTE | 2021-09-09 15:21 | WPDANESEPPF ---
Anes - Initial Pre Proc Eval Procedure: Operation Date: 09/10/21 07:30 Proposed Procedures p Right Total Knee Arthroplasty - Alejandro Paniagua MD Date/Time: 09/09/21 15:22 Surgeon: Alejandro Paniagua MD Pre Op Diagnosis: right knee DJD with loose bodies Patient Data Age: 81 Gender: M Height: 1.8 m Weight: 110 kg Last Vital Signs Temp 36.8 C 09/01/21 08:35 Pulse 54 L 09/01/21 08:35 Resp 18 09/01/21 08:35 BP 177/78 H 09/01/21 08:35 Pulse Ox 95 09/01/21 08:35 Allergies Allergy/AdvReac Type Severity Reaction Status Date / Time ciprofloxacin Allergy Severe HE STATED Verified 09/10/21 06:21 HE HAD SOMETHING PRE OP AND WENT INTO SHOCK codeine AdvReac Severe constipatio Verified 09/10/21 06:21 n Home Medications Medication Instructions Recorded Confirmed Type cholecalciferol (vitamin D3) 25 25 mcg PO DAILY 11/01/20 09/10/21 History mcg (1,000 unit) capsule apixaban 2.5 mg tablet 2.5 mg PO Q12HR #180 tablet 12/23/20 09/10/21 Rx allopurinol 300 mg PO DAILY PRN 09/01/21 09/02/21 History pantoprazole 40 mg PO DAILY 09/01/21 09/10/21 History sotalol 80 mg PO BID 09/01/21 09/10/21 History Patient hx anesthesia problems: none Family hx anesthesia problems: none Results Review: All pre-operative results and documents have been reviewed as part of the pre-operative evaluation. [facility] Past Medical History Medical History (Updated 09/09/21 @ 15:24 by Raymond Pichardo MD) Adenocarcinoma of cecum (~10/2016) Status post right hemicolectomy. Arthritis Chronic anemia Chronic GERD Chronic kidney disease, stage 4 (severe) GFR of 28 in February 2020. Chronic rhinitis Essential hypertension Gastroesophageal reflux disease Gout H/O colon cancer, stage I Malignant neoplasm of prostate (~2008) Status post radiation. Paroxysmal atrial fibrillation Paroxysmal tachycardia Pre-diabetes Shingles (~05/2020) Surgical History Surgical History History of laparoscopic cholecystectomy (~06/2015) History of right hemicolectomy (~11/2016) Family History Family History Father Family history of lung cancer Father , Cancer No problems noted. Other Family history of dementia Social History Social History Social History: Surrogate decision maker: Milagro Burr, sister. Code status: Full code. Smoking packs per day: 2 Smoking cigarettes per day: 40.0 Years smoked: 40 Smoking pack-years: 80.00 Smoking status: Former smoker Tobacco type: cigarettes Smoking end date: 08/23/99 Alcohol intake: current Drinks per week: 2 Alcohol use details: 2 OZ BURBON, VERY HEAVY DRINKER IN PAST Substance use: never Living arrangements: alone Additional living arrangements comments: Lives alone in [place]. Gender identity (if verbalized by the patient): Male Spiritual care concerns: No Anes - Eval Final PreProcedure Day of Procedure 09/09/21 15:22 Patient weight: obese Heart: regular rate and rhythm Lungs: clear to auscultation and normal air movement Airway: Mallampati scale class II Neurological: alert and oriented Last oral intake: >/= 8 hours ASA classification: III Emergent: no Anesthetic plan: proceed Anesthesia type and monitoring: general LMA Results Review: All pre-operative results and documents have been reviewed as part of the pre-operative evaluation. Informed Consent: The patient's anesthetic plan and its attendant risks and benefits were discussed with the patient/family/POA. Questions were solicited and answers provided to the satisfaction of the patient/family/POA.
--- NOTE | 2021-09-09 15:25 | WPDANESPNB ---
Anes - Peripheral Nerve Block Date/Time: 09/09/21 15:25 I have discussed with the patient/family/POA the placement of a peripheral nerve block for post-operative pain management, including associated risks, benefits, complications, and side effects. Alternative methods of post-operative analgesia were detailed. Questions were solicited and answers provided to the satisfaction of the patient/family/POA. Time-Out: A pre-procedural Time-Out was completed immediately before starting the procedure and confirmed: Patient Identification, Site, Procedure, Patient Position and the Availability of Requisite Equipment. Clinical Indications: Acute post-operative pain management requested by the operative surgeon. Nerve Block Insertion Note Anes-nerve block: adductor canal right Patient position: supine Skin prep: chlorhexidine Needle: 22 gauge, stimulating, insulated echogenic needle. Needle length: 80 mm Technique: ultrasound Technique comment: in plane Injectate: bupivacaine 0.5% with epi 5 mcg/ml (30cc) Observations: tolerated well Complications: none Procedure start time:: 725 Procedure end time:: 730
[2021-09-10] VITALS (14 sets, daily range): BP systolic 140–166; BP diastolic 60–85; PULSE 50–68; RESP 13–20; TEMP 35.9–37; O2SAT 93–100; BMI 33.8
--- NOTE | ~2021-09-10 | XR_ITS ---
EXAMINATION: XR knee RT 2V DATE: 09/10/2021 11:08 INDICATION: Postoperative evaluation following right total knee arthroplasty. TECHNIQUE: Anteroposterior and lateral views of the right knee were obtained. COMPARISON: 09/01/2021 FINDINGS: Right total knee arthroplasty without patellar resurfacing appears well seated and in near anatomic a lignment. No fractures identified. Skin jack and expected postoperative subcutaneous and intra-a rticular gas. IMPRESSION: 1. Right total knee arthroplasty, negative for postoperative purposes. Reviewed, dictated and finalized at location A. [employer]
[2021-09-10] MEDS: ACETAMINOPHEN 500 MG TABLET 1000 MG PO ×2 (06:30→21:30)
[2021-09-10] MEDS: LACTATED RINGERS 1,000 ML 30 ML IV CONT ×2 (06:45→10:59)
[2021-09-10] MEDS: TRANEXAMIC ACID 1,000MG/ISO100 1,000 MG/100 ML BAG 200 MG IVPB (06:50)
--- NOTE | 2021-09-10 07:21 | WPDHPUPDATE1 ---
History and Physical Update Update Date/Time: 09/10/21 07:21 History and Physical has been reviewed, including an updated exam of the patient. There are NO changes in the patient's condition. Risks, benefits, and alternatives have been discussed and questions answered. Patient agrees to proceed with procedure.
[2021-09-10] MEDS: ceFAZolin 2 GM/D5W 50 ML 2 GM/50 ML BAG IVPB ×2 (07:40→16:00)
[2021-09-10] MEDS: TRANEXAMIC ACID 1,000 MG/10 ML AMPUL 1000 MG IV PUSH (09:59)
--- NOTE | 2021-09-10 11:33 | P.OP_ITS ---
Procedure Note - Detailed Date of Procedure 09/10/21 Pre-op Diagnosis right knee DJD with loose bodies Post-op Diagnosis same Procedure Performed R TKA Surgeon Alejandro Paniagua MD Anesthesia general Description of Procedure THE RIGHT KNEE WAS PREPPED AND DRAPED IN THE STERILE FASHION. THERE WAS A 10 DEGREE FLEXION CONTRACTURE. A MIDLINE SKIN INCISION WAS MADE. A MEDIAL PARAPATELLAR ARTHROTOMY WAS MADE. THE PATELLA WAS EVERTED. THERE WAS TRICOMPARTMENT DJD. THERE WAS MINIMAL PATELLA DJD. AN INTRAMEDULLARY LAINE WAS PLACED IN THE FEMUR. A DISTAL FEMORAL CUT WAS MADE IN 5 DEGREES OF VALGUS REMOVING APPROXIMATELY 9 MM OF BONE FROM THE DISTAL FEMUR. THE FEMUR WAS SIZED TO 70. A 70 FEMORAL CUTTING BLOCK WAS PLACED IN 3 DEGREES OF EXTERNAL ROTATION AND IN ALIGNMENT WITH ESME'S LINE AND THE TRANSEPICONDYLAR AXIS. ANTERIOR POSTERIOR AND CHAMFER CUTS WERE MADE. THE CUTS WERE EXCELLENT. NEXT AN INTR AMEDULLARY CUTTING GUIDE WAS PLACED IN THE TIBIA. A TRANS TIBIAL CUT WAS MADE ALONG THE LONG AXIS OF THE TIBIA. APPROXIMATELY 10 MM OF BONE WAS REMOVED FROM THE HIGH SIDE OF THE TIBIA. THE TIBIA WAS THEN PLANED TO A SMOOTH SURFACE. POSTERIOR FEMORAL OSTEOPHYTES WERE REMOVED FROM THE FEMORAL CONDYLES. A 79 TIBIAL TRIAL WAS PLACED IN ALIGNMENT WITH THE 1/3 MEDIAL ASPECT OF THE TIBIAL TUBERCLE. THEN A 70 FEMORAL TRIAL COMPONENT WAS PLACED. BOTH HAD EXCELLENT FITS. EVENTUALLY A 12 MM POLYETHYLENE TRIAL COMPONENT WAS PLACED. THE KNEE WAS TAKEN THROUGH A RANGE OF MOTION. THE KNEE CAME OUT TO FULL EXTENSION. THERE WAS NO ABNORMAL TILT TO THE PATELLA. THERE WAS GOOD A/P AND VARUS/VALGUS STABILITY. THERE WAS NO EXCESSIVE ROLL BACK WITH FLEXION. THE TRIAL COMPONENTS WERE REMOVED. THEN A 670 FEMORAL COMPONENT AND 79 TIBIAL COMPONENT WITH A 12 POLYETHYLENE COMPONENT WERE CEMENTED INTO PLACE. ONCE THE CEMENT WAS HARD THE KNEE WAS TAKEN THROUGH A ROM AGAIN AND FOUND TO BE STABLE WITH NO PATELLA TILT NO EXCESSIVE ROLL BACK WITH FLEXION AND GOOD STABILITY WITH COMPLETE AND FULL EXTENSION. THE KNEE WAS IRRIGATED WITH STERILE BETADINE AND WATER FOR ABOUT 3 MINUTES. THE BLEEDERS WERE CAUTERIZED. THE ARTHROTOMY WAS REPAIRED WITH NUMBER 1 VICRYL. THE SUB CUTANEOUS LAYER WITH 2-0 VICRYL AND THE SKIN WITH LINH. THE WOUND WAS WASHED AND A STERILE DRESSING WAS APPLIED. PATIENT WAS EXTUBATED. Estimated Blood Loss -150.0 Pathology none sent Complications No immediate complications Condition stable Disposition PACU
[2021-09-10] MEDS: fentaNYL CITRATE INJ (*CRX) 100 MCG/2 ML VIAL 25 MCG IV PUSH ×3 (11:36→12:28)
--- NOTE | 2021-09-10 13:00 | ADMGEN ---
This patient, Gelacio Burr JrMartínez, was admitted to [facility]. Patient/family oriented to hospital policies and general routines including ID bracelet, bed and alarms, visiting hours, pain management, procedures, bathroom and other care routines, personal items, smoking policy, room service/diet, and visiting hours. Information on how to activate the Rapid Response Team has been discussed. Patient/Family are encouraged to report perceived risks to care and to ask questions if they do not understand what they are told or what they should do.
[2021-09-10] MEDS: SODIUM CHLORIDE 0.9% IV 1,000 ML 125 ML IV CONT (13:30)
[2021-09-10] MEDS: oxyCODONE/ACETAMINOPHEN (*CRX) 5-325 MG TABLET 1 TABLET PO (13:44)
[2021-09-10] MEDS: SENNA/DOCUSATE SODIUM TABLET 2 TAB PO (17:02)
[2021-09-10] MEDS: CELECOXIB 200 MG CAPSULE PO (17:02)
[2021-09-10] MEDS: APIXABAN 2.5 MG TABLET PO (21:27)
[2021-09-10] MEDS: SOTALOL HCL 80 MG TABLET PO (21:27)
[2021-09-11] MEDS: ceFAZolin 2 GM/D5W 50 ML 2 GM/50 ML BAG IVPB ×2 (00:10→08:15)
[2021-09-11 04:00] VITALS: BP 141/60; PULSE 56; RESP 20; O2SAT 100
[2021-09-11 05:46] LABS: Basophils Percent Auto 0.3 % (0.2-1.2); Hematocrit 31.7 % (42.0-52.0); Hemoglobin 10.6 g/dL (14.0-18.0); Immature Granulocyte Absolute 0.07 K/mm3 (0.00-0.031); Immature Granulocyte Percent A 0.7 % (0-0.5); Lymphocytes Absolute Auto 0.87 K/mm3 (0.9-3.2); Lymphocytes Percent Auto 9.3 % (18.3-44.2); Mean Corpuscular HGB Conc 33.4 g/dl (32-36); Mean Corpuscular Hemoglobin 32.3 pg (26-34); Mean Corpuscular Volume 96.6 fl (80-100); Mean Platelet Volume 9.1 fl (7.4-10.4); Monocytes Percent Auto 11.1 % (2.6-8.5); Neutrophils Absolute Auto 7.4 K/mm3 (1.3-6.7); Neutrophils Percent Auto 78.6 % (45.5-73.1); Platelet Count Result 154 k/mm3 (150-375); Red Blood Count 3.28 M/mm3 (4.6-6.20); Red Cell Distribution Width 13.8 % (11.5-14.5); White Blood Count 9.4 K/mm3 (4.5-10.0)
[2021-09-11 06:00] VITALS: RESP 20
[2021-09-11 06:03] LABS: Anion Gap 8 mmol/L (8-16); Blood Urea Nitrogen 39 mg/dL (9-20); Calcium 8.7 mg/dL (8.4-10.2); Carbon Dioxide 21 mmol/L (22-30); Chloride 108 mmol/L (98-107); Estimated CRCL calculation 29 ml/min; Estimated Glomerular Filt Rate 26; Glucose 137 mg/dL (65-110); Potassium 5.3 mmol/L (3.4-5.0); Sodium 137 mmol/L (137-145)
[2021-09-11] MEDS: CELECOXIB 200 MG CAPSULE PO (08:30)
[2021-09-11] MEDS: polyethylene glycoL 3350 17 GM POWD.PACK PO (09:11)
[2021-09-11] MEDS: PANTOPRAZOLE 40 MG TABLET PO (09:11)
[2021-09-11 09:12] VITALS: PULSE 60
[2021-09-11] MEDS: SOTALOL HCL 80 MG TABLET PO (09:12)
[2021-09-11] MEDS: SENNA/DOCUSATE SODIUM TABLET 2 TAB PO (09:13)
[2021-09-11] MEDS: CHOLECALCIFEROL 1,000 UNITS TABLET 1000 UNITS PO (09:14)
[2021-09-11] MEDS: APIXABAN 2.5 MG TABLET PO (09:14)
--- NOTE | 2021-09-11 11:54 | PM.IMCN ---
Assessment and Plan Assessment and plan (1) Right knee DJD: Code(s): M17.11 - Unilateral primary osteoarthritis, right knee Status: Acute Assessment and Plan: Gelacio Burr Jr. is a 81 year old male with a past medical history of hypertension, chronic kidney disease and proximal and fibrillation patient with the right need DJD was seen by his orthopedic surgeon and had a right knee total arthroplasty, we were consulted for medical management of his hypertension, chronic kidney disease, and atrial fibrillation, patient remains clinically stable he denies any complaint of chest pain, shortness of breath, or palpitation, patient remains clinically stable will continue to monitor, thank you for consulting us for medical management will follow the patient with you if you have any question please feel free to call us (2) Chronic kidney disease, stage 4 (severe): Code(s): N18.4 - Chronic kidney disease, stage 4 (severe) Status: Acute Assessment and Plan: patient was a chronic kidney disease his serum creatinine is elevated most likely secondary to dehydration because patient had been fasting for the surgery, and patient will resume his p.o. intake, (3) Essential hypertension: Code(s): I10 - Essential (primary) hypertension Status: Acute Assessment and Plan: patient blood pressure reasonably well controlled and patient has no complaint of chest pain. HPI Data of Consult Consult date: 09/11/21 Requesting Physician: Alejandro Paniagua MD Primary Care Provider: Alex Gutierrez DO Consult Narrative Narrative: Gelacio Burr Jr. is a 81 year old male with a past medical history of hypertension, chronic kidney disease and proximal and fibrillation patient with the right need DJD was seen by his orthopedic surgeon and had a right knee total arthroplasty, we were consulted for medical management of his hypertension, chronic kidney disease, and atrial fibrillation, patient remains clinically stable he denies any complaint of chest pain, shortness of breath, or palpitation, patient remains clinically stable will continue to monitor, thank you for consulting us for medical management will follow the patient with you if you have any question please feel free to call us. [facility] Past Medical History Medical History (Updated 09/09/21 @ 15:24 by Raymond Pichardo MD) Adenocarcinoma of cecum (~10/2016) Status post right hemicolectomy. Arthritis Chronic anemia Chronic GERD Chronic kidney disease, stage 4 (severe) GFR of 28 in February 2020. Chronic rhinitis Essential hypertension Gastroesophageal reflux disease Gout H/O colon cancer, stage I Malignant neoplasm of prostate (~2008) Status post radiation. Paroxysmal atrial fibrillation Paroxysmal tachycardia Pre-diabetes Shingles (~05/2020) Surgical History Surgical History History of laparoscopic cholecystectomy (~06/2015) History of right hemicolectomy (~11/2016) Family History Family History Father Family history of lung cancer Father , Cancer No problems noted. Other Family history of dementia Social History Social History Social History: Surrogate decision maker: Milagro Burr, sister. Code status: Full code. Smoking packs per day: 2 Smoking cigarettes per day: 40.0 Years smoked: 37 Smoking pack-years: 74.00 Smoking status: Former smoker Tobacco type: cigarettes Smoking end date: 08/23/99 Alcohol intake: current Drinks per week: 5 Alcohol use details: 2 OZ BURBON, VERY HEAVY DRINKER IN PAST Substance use: never Substance use type: does not use Last use: 09/09/21 Living arrangements: alone Additional living arrangements comments: Lives alone in [place]. Gender identity (if verbalized by the patient): Mal
--- NOTE | 2021-09-11 12:53 | PM.PNORT ---
Progress Note: A&P Additional Plan POD 1 DOING WELL. OK TO DC HOME F/U IN 3 WEEKS. Subjective Subjective Date/Time Seen: 09/11/21 12:53 POD 1 DOING WELL WITH PT. PAIN CONTROLLED. NO CALF PAIN Exam Extrem: Other: VSS AFEBRILE DRESSING DRY NV INTACT NEG HOMAMS SIGN Objective Data Vital Signs Vital Signs: Vital Signs - 24 hr 09/10/21 13:00 09/10/21 14:00 09/10/21 14:39 Temperature 35.9 C L 36.0 C L 36.1 C L Pulse Rate 52 L 52 L 50 L Respiratory Rate 16 16 16 Blood Pressure 151/60 H 140/65 148/62 H Pulse Oximetry 97 100 100 09/10/21 20:00 09/10/21 21:27 09/11/21 04:00 Temperature Pulse Rate 62 62 56 L Respiratory Rate 20 20 Blood Pressure 151/72 H 141/60 H Pulse Oximetry 100 09/11/21 06:00 09/11/21 09:12 Temperature Pulse Rate 60 Respiratory Rate 20 Blood Pressure Pulse Oximetry Intake/Output Intake/Output: Intake & Output 09/08/21 09/09/21 09/10/21 09/11/21 23:59 23:59 23:59 23:59 Intake Total 1200 50 Balance 1200 50 Meds/Results Medications: Active Medications Generic Name Dose Route Start Last Admin Trade Name Freq PRN Reason Stop Dose Admin Allopurinol 300 mg 09/10/21 12:54 Allopurinol 300 Mg Tablet PO DAILY PRN Outbreak Apixaban 2.5 mg 09/10/21 21:00 09/11/21 09:14 Apixaban 2.5 Mg Tablet PO 2.5 mg Q12HR EB Administration Celecoxib 200 mg 09/10/21 17:00 09/11/21 08:30 Celecoxib 200 Mg Capsule PO 200 mg BIDWM EB Administration Diazepam 5 mg 09/10/21 12:54 Diazepam (*Crx) 5 Mg Tablet PO Q8H PRN Spasms Diphenhydramine HCl 25 mg 09/10/21 12:54 Diphenhydramine Hcl Inj 50 Mg/Ml Vial IV PUSH Q6H PRN Itching Magnesium Hydroxide 30 ml 09/10/21 12:54 Magnesium Hydroxide Susp 30 Ml Udc PO BID PRN Constipation Naloxone HCl 0.1 mg 09/10/21 12:54 Naloxone Hcl 0.4 Mg/Ml Vial IV PUSH Q2M PRN Opiate Reversal Ondansetron HCl 4 mg 09/10/21 12:54 Ondansetron Inj 4 Mg/2 Ml Vial IV PUSH Q4H PRN Nausea And Vomiting Oxycodone HCl 7.5 mg 09/10/21 12:54 Oxycodone Hcl (*Crx) 2.5 Mg Tab Ir PO Q4H PRN Pain Rated 7-10 Oxycodone/Acetaminophen 1 tablet 09/10/21 12:54 09/10/21 13:44 Oxycodone/Acetaminophen (*Crx) 5-325 Mg Tablet PO 1 tablet Q4H PRN Administration Pain Rated 4-6 Pantoprazole Sodium 40 mg 09/11/21 09:00 09/11/21 09:11 Pantoprazole 40 Mg Tablet PO 40 mg DAILY EB Administration Polyethylene Glycol 17 gm 09/11/21 09:00 09/11/21 09:11 Polyethylene Glycol 3350 17 Gm Powd.Pack PO 17 gm QAM EB Administration Senna/Docusate Sodium 2 tab 09/10/21 17:00 09/11/21 09:13 Senna/Docusate Sodium Tablet PO 2 tab BID EB Administration Sotalol HCl 80 mg 09/10/21 21:00 09/11/21 09:12 Sotalol Hcl 80 Mg Tablet PO 80 mg Q12HR EB Administration Vitamin D 1,000 units 09/11/21 09:00 09/11/21 09:14 Cholecalciferol 1,000 Units Tablet PO 1,000 units DAILY EB Administration Radiology Results: ITS Impressions Knee X-Ray 09/10/21 11:14 IMPRESSION: 1. Right total knee arthroplasty, negative for postoperative purposes. Labs Labs: Laboratory Results - last 24 hr 09/11/21 09/11/21 05:28 05:28 WBC 9.4 RBC 3.28 L Hgb 10.6 L D Hct 31.7 L MCV 96.6 MCH 32.3 MCHC 33.4 RDW 13.8 Plt Count 154 MPV 9.1 Immature Gran % (Auto) 0.7 H Neut % (Auto) 78.6 H Lymph % (Auto) 9.3 L [place] % (Auto) 11.1 H Eos % (Auto) 0.0 Baso % (Auto) 0.3 Lymph # (Auto) 0.87 L [place] # (Auto) 1.0 H Eos # (Auto) 0.0 Baso # (Auto) 0.0 Abs Immat Gran (auto) 0.07 H Absolute Neuts (auto) 7.4 H Absolute Nucleated RBC 0.0 Nucleated RBC % 0.0 Sodium 137 Potassium 5.3 H Chloride 108 H Carbon Dioxide 21 L Anion Gap 8 BUN 39 H Creatinine 2.40 H Estim Creat Clear Calc 29 Estimated GFR 26 L Glucose 137 H Calcium 8.7
--- NOTE | 2021-09-11 12:55 | PM.DS ---
DS: Admitting Diagnosis Discharge Date 09/11/21 Admitting Diagnosis R KNEE DJD DS: Discharge Diagnosis Discharge Diagnosis (1) Right knee DJD: Code(s): M17.11 - Unilateral primary osteoarthritis, right knee Status: Acute DS: Summary Hospital Course Reason for hospitalization: R TKA Hospital Course: PATIENT WAS ADMITTED S/P RIGHT TOTAL KNEE ARTHROPLASTY FOR POSTOPERATIVE MEDICAL MANAGEMENT, PAIN CONTROL AND MOBILIZATION WITH PHYSICAL AND OCCUPATIONAL THERAPY. THE PATIENT PROGRESSED WELL WITH PT/OT. LABS AND VITALS REMAINED STABLE AND PAIN WELL CONTROLLED. THE PATIENT HAS BEEN CLEARED TO BE DISCHARGED HOME. FOLLOW UP APPOINTMENT SCHEDULED. DISCHARGE INSTRUCTIONS DISCUSSED AT LENGTH WITH THE PATIENT. MEDICATIONS REVIEWED. Time spent discussing smoking cessation with patient: 3 to 10 minutes Status at Discharge Functional status at discharge: uses cane/walker Time Spent with Patient Time attestation: Total time spent providing and/or coordinating discharge services: Time spent: Less than 30 minutes DS: Data Data Completed and Pending Labs on day of discharge: Labs from last 24 hours 09/11/21 09/11/21 05:28 05:28 WBC 9.4 RBC 3.28 L Hgb 10.6 L D Hct 31.7 L MCV 96.6 MCH 32.3 MCHC 33.4 RDW 13.8 Plt Count 154 MPV 9.1 Immature Gran % (Auto) 0.7 H Neut % (Auto) 78.6 H Lymph % (Auto) 9.3 L Camp % (Auto) 11.1 H Eos % (Auto) 0.0 Baso % (Auto) 0.3 Lymph # (Auto) 0.87 L Camp # (Auto) 1.0 H Eos # (Auto) 0.0 Baso # (Auto) 0.0 Abs Immat Gran (auto) 0.07 H Absolute Neuts (auto) 7.4 H Absolute Nucleated RBC 0.0 Nucleated RBC % 0.0 Sodium 137 Potassium 5.3 H Chloride 108 H Carbon Dioxide 21 L Anion Gap 8 BUN 39 H Creatinine 2.40 H Estim Creat Clear Calc 29 Estimated GFR 26 L Glucose 137 H Calcium 8.7 Discharge Plan Discharge Patient Disposition: Home Health Service Discharge Instructions: Care Coordination: Patient to have [facility] for PT/OT eval and treat, and prison. They can be reached at [phone] and will contact you to schedule their first visit. Patient Instructions: Antibiotic Form, Blood Thinners (DC) Stand Alone Forms: General Discharge Information Discharge Medications: No Action cholecalciferol (vitamin D3) 25 mcg (1,000 unit) capsule 25 mcg PO DAILY RF: 0 allopurinol 300 mg Tablet 300 mg PO DAILY PRN (Reason: Outbreak) RF: 0 sotalol 80 mg tablet 80 mg PO BID RF: 0 pantoprazole 40 mg tablet,delayed release (DR/EC) 40 mg PO DAILY RF: 0 Eliquis 2.5 mg tablet 2.5 mg PO Q12HR Qty: 180 RF: 3
[2021-09-11] MEDS: oxyCODONE/ACETAMINOPHEN (*CRX) 5-325 MG TABLET 1 TABLET PO (13:07)
--- NOTE | 2021-09-11 13:42 | PCPTNOTE ---
Pt refused a second treatment this date. Pt is to DC from therapy this afternoon.
== END 2021-09-11 14:45 | disposition home health service (06) ==
LOC: ANHSURGERY 05:46 → ANHSUROVER 13:03
PROVIDERS: PCP Internal Medicine; Visit Provider Orthopaedic Surgery
PROC: (CPT 27447; principal; 2021-09-10 07:30)
DX: M17.11 Unilateral primary osteoarthritis, right knee (principal); G89.18 Other acute postprocedural pain; I12.9 Hypertensive chronic kidney disease with stage 1 through stage 4 chronic kidney disease, or unspecified chronic kidney disease; N18.4 Chronic kidney disease, stage 4 (severe); D64.9 Anemia, unspecified; K21.9 Gastro-esophageal reflux disease without esophagitis; M10.9 Gout, unspecified; I48.0 Paroxysmal atrial fibrillation; I47.9 Paroxysmal tachycardia, unspecified; R73.03 Prediabetes; Z79.01 Long term (current) use of anticoagulants; Z85.038 Personal history of other malignant neoplasm of large intestine; Z85.46 Personal history of malignant neoplasm of prostate; Z90.49 Acquired absence of other specified parts of digestive tract; Z87.891 Personal history of nicotine dependence; E66.9 Obesity, unspecified; Z68.33 Body mass index [BMI] 33.0-33.9, adult
CPT/HCPCS: 27447; 64447; 36415; 73560; 80048; 85025; 97110; 97116; 97161; 97165; 97530; 97535; A9270; C1713; C1776; J0171; J0690; J1170; J2250; J2270; J2795; J3010; J7030; J7120

== ENCOUNTER 2022-02-16 02:14 | Day surgery (SDC) | payer MEDICARE, OTHER, SELFPAY ==
[2022-02-12 08:14] VITALS: BMI 33.5
[2022-02-16 09:35] VITALS: BP 164/89; PULSE 76; RESP 20; TEMP 36.4; O2SAT 98; BMI 33.1
--- NOTE | 2022-02-16 09:48 | PM.IMHP ---
H&P: HPI History of Present Illness Date/Time: 02/16/22 09:48 Chief Complaint: History of colon cancer Narrative: this is a 81-year-old white male patient presents for follow-up colonoscopy. Patient found to have stage I colon cancer in a polyp 2016. Patient's most recent exam was 3 years ago. He presents today for follow-up colonoscopy. He reports poor control with bowel habits and significant urgency. He denies any weight loss or bleeding. Family history noncontributory. Patient presents today for neoplasia screening. Review of Systems Review of Systems: Review of systems is noncontributory. [facility] Past Medical History Medical History Adenocarcinoma of cecum (~10/2016) Status post right hemicolectomy. Arthritis Chronic anemia Chronic GERD Chronic kidney disease, stage 4 (severe) GFR of 28 in February 2020. Chronic rhinitis Essential hypertension Gastroesophageal reflux disease Gout H/O colon cancer, stage I Malignant neoplasm of prostate (~2008) Status post radiation. Paroxysmal atrial fibrillation Paroxysmal tachycardia Pre-diabetes Shingles (~05/2020) Surgical History Surgical History History of laparoscopic cholecystectomy (~06/2015) History of right hemicolectomy (~11/2016) Family History Family History Father Family history of lung cancer Father , Cancer No problems noted. Other Family history of dementia Social History Social History Social History: Surrogate decision maker: Milagro Burr, sister. Code status: Full code. Smoking packs per day: 2 Smoking cigarettes per day: 40.0 Years smoked: 37 Smoking pack-years: 74.00 Smoking status: Former smoker Tobacco type: cigarettes Smoking end date: 08/23/99 Alcohol intake: current Drinks per week: 7 Alcohol use details: 7 OZ [place]OUR[place]ON A WEEK Substance use: never Substance use type: does not use Last use: 09/09/21 Living arrangements: alone Additional living arrangements comments: Lives alone in [place]. Gender identity (if verbalized by the patient): Male Sexual Orientation (if Verbalized by the Patient): Straight or Heterosexual Spiritual care concerns: No Meds Home Medications and Allergies Home Medications Medication Instructions Recorded Confirmed Type cholecalciferol (vitamin D3) 25 25 mcg PO DAILY 11/01/20 02/12/22 History mcg (1,000 unit) capsule allopurinol 300 mg tablet 300 mg PO DAILY PRN Outbreak 09/01/21 02/12/22 History apixaban 2.5 mg tablet (Eliquis) 2.5 mg PO BID 12/24/21 02/12/22 History wheat dextrin 3 gram/3.5 gram oral 1 packet PO DAILY #28 ea 12/24/21 02/12/22 Rx powder packet (Benefiber Clear Sugar Free(dextrin)) sodium sul 1.479 gram-potas ch See Rx Instructions PO PER PKG DIR 01/14/22 02/12/22 Rx 0.188 gram-magnes sul 0.225 gram #24 tabs tablet (Sutab) pantoprazole 40 mg tablet,delayed 40 mg PO BID #60 tabs 02/05/22 02/12/22 Rx release azelastine 137 mcg (0.1 %) nasal 1 - 2 spray intranasal Q12H PRN 02/12/22 02/12/22 History spray aerosol Allergy Symptoms nystatin 100,000 unit/gram topical 1 applic topical BID PRN Rash 02/12/22 02/12/22 History powder simethicone 125 mg capsule 125 mg PO BID 02/12/22 02/12/22 History sotalol 80 mg tablet 40 mg PO BID 02/12/22 02/12/22 History Allergies Allergy/AdvReac Type Severity Reaction Status Date / Time ciprofloxacin Allergy Severe HE STATED Verified 02/16/22 09:32 HE HAD SOMETHING PRE OP AND WENT INTO SHOCK codeine AdvReac Severe constipatio Verified 02/16/22 09:32 n Vital Signs Vital Signs - 24 hr 02/16/22 09:35 Temperature 97.6 F Pulse Rate 76 Respiratory Rate 20 Blood Pressure 164/89 H Pulse Oximetry 98 Oxygen Delivery Room A
[2022-02-16] MEDS: LACTATED RINGERS 1,000 ML 150 ML IV CONT (09:51)
[2022-02-16] MEDS: AMPICILLIN 2 GM/NS 100 ML 2 GM/100 ML BAG IVPB (09:52)
--- NOTE | 2022-02-16 10:11 | WPDANESEPPF ---
Anes - Initial Pre Proc Eval Procedure: Operation Date: 02/16/22 10:30 Proposed Procedures p Screening Colonoscopy - Ricardo Salcido MD Date/Time: 02/16/22 10:11 Surgeon: Ricardo Salcido MD Pre Op Diagnosis: hx of colon ca Patient Data Age: 81 Gender: M Height: 1.8 m Weight: 107.7 kg Last Vital Signs Temp 97.6 F 02/16/22 09:35 Pulse 76 02/16/22 09:35 Resp 20 02/16/22 09:35 BP 164/89 H 02/16/22 09:35 Pulse Ox 98 02/16/22 09:35 O2 Del Method Room Air 02/16/22 09:35 Allergies Allergy/AdvReac Type Severity Reaction Status Date / Time ciprofloxacin Allergy Severe HE STATED Verified 02/16/22 09:32 HE HAD SOMETHING PRE OP AND WENT INTO SHOCK codeine AdvReac Severe constipatio Verified 02/16/22 09:32 n Home Medications Medication Instructions Recorded Confirmed Type cholecalciferol (vitamin D3) 25 25 mcg PO DAILY 11/01/20 02/12/22 History mcg (1,000 unit) capsule allopurinol 300 mg tablet 300 mg PO DAILY PRN Outbreak 09/01/21 02/12/22 History apixaban 2.5 mg tablet (Eliquis) 2.5 mg PO BID 12/24/21 02/12/22 History wheat dextrin 3 gram/3.5 gram oral 1 packet PO DAILY #28 ea 12/24/21 02/12/22 Rx powder packet (Benefiber Clear Sugar Free(dextrin)) sodium sul 1.479 gram-potas ch See Rx Instructions PO PER PKG DIR 01/14/22 02/12/22 Rx 0.188 gram-magnes sul 0.225 gram #24 tabs tablet (Sutab) pantoprazole 40 mg tablet,delayed 40 mg PO BID #60 tabs 02/05/22 02/12/22 Rx release azelastine 137 mcg (0.1 %) nasal 1 - 2 spray intranasal Q12H PRN 02/12/22 02/12/22 History spray aerosol Allergy Symptoms nystatin 100,000 unit/gram topical 1 applic topical BID PRN Rash 02/12/22 02/12/22 History powder simethicone 125 mg capsule 125 mg PO BID 02/12/22 02/12/22 History sotalol 80 mg tablet 40 mg PO BID 02/12/22 02/12/22 History Patient hx anesthesia problems: none Family hx anesthesia problems: none Results Review: All pre-operative results and documents have been reviewed as part of the pre-operative evaluation. [facility] Past Medical History Medical History Adenocarcinoma of cecum (~10/2016) Status post right hemicolectomy. Arthritis Chronic anemia Chronic GERD Chronic kidney disease, stage 4 (severe) GFR of 28 in February 2020. Chronic rhinitis Essential hypertension Gastroesophageal reflux disease Gout H/O colon cancer, stage I Malignant neoplasm of prostate (~2008) Status post radiation. Paroxysmal atrial fibrillation Paroxysmal tachycardia Pre-diabetes Shingles (~05/2020) Surgical History Surgical History History of laparoscopic cholecystectomy (~06/2015) History of right hemicolectomy (~11/2016) Family History Family History Father Family history of lung cancer Father , Cancer No problems noted. Other Family history of dementia Social History Social History Social History: Surrogate decision maker: Milagro Burr, sister. Code status: Full code. Smoking packs per day: 2 Smoking cigarettes per day: 40.0 Years smoked: 37 Smoking pack-years: 74.00 Smoking status: Former smoker Tobacco type: cigarettes Smoking end date: 08/23/99 Alcohol intake: current Drinks per week: 7 Alcohol use details: 7 OZ [place] A WEEK Substance use: never Substance use type: does not use Last use: 09/09/21 Living arrangements: alone Additional living arrangements comments: Lives alone in [place]. Gender identity (if verbalized by the patient): Male Sexual Orientation (if Verbalized by the Patient): Straight or Heterosexual Spiritual care concerns: No Anes - Eval Final PreProcedure Day of Procedure 02/16/22 10:11 Patient weight: normal Heart: regular rate and rhyth
[2022-02-16 10:33] VITALS: BP 123/53; PULSE 76; RESP 19; O2SAT 98
[2022-02-16 10:43] VITALS: BP 134/65; PULSE 76; RESP 18; O2SAT 99
[2022-02-16 10:53] VITALS: BP 132/65; PULSE 76; RESP 18; O2SAT 98
== END 2022-02-16 11:01 | disposition home or self-care (01) ==
PROVIDERS: PCP Internal Medicine; Visit Provider Internal Medicine Gastroenterology
PROC: 0DJD8ZZ Inspection of Lower Intestinal Tract, Via Natural or Artificial Opening Endoscopic (ICD-10-PCS; CPT 45378; principal; 2022-02-16 10:30)
DX: Z12.11 Encounter for screening for malignant neoplasm of colon (principal); K64.8 Other hemorrhoids; K57.30 Diverticulosis of large intestine without perforation or abscess without bleeding; Z98.0 Intestinal bypass and anastomosis status; Z90.49 Acquired absence of other specified parts of digestive tract; Z85.038 Personal history of other malignant neoplasm of large intestine; R15.2 Fecal urgency; I12.9 Hypertensive chronic kidney disease with stage 1 through stage 4 chronic kidney disease, or unspecified chronic kidney disease; N18.4 Chronic kidney disease, stage 4 (severe); D64.9 Anemia, unspecified; K21.9 Gastro-esophageal reflux disease without esophagitis; M10.9 Gout, unspecified; I48.0 Paroxysmal atrial fibrillation; R73.03 Prediabetes; Z85.46 Personal history of malignant neoplasm of prostate; Z92.3 Personal history of irradiation; Z87.891 Personal history of nicotine dependence; Z79.01 Long term (current) use of anticoagulants
CPT/HCPCS: G0105; J0290; J2704; J7120

== ENCOUNTER 2022-08-26 16:52 | Emergency (ER) | payer MEDICARE, SELFPAY ==
--- NOTE | ~2022-08-26 | CT_ITS ---
EXAMINATION: CT abdomen pelvis wo con DATE: 08/26/2022 21:33 INDICATION: inguinal pain TECHNIQUE: Computed tomography (CT) of the abdomen and pelvis was performed without intravenous contr ast. Automated exposure control and iterative reconstruction technique were employed. The dose-length product was 986.34 mGy-cm. COMPARISON: 07/28/2017. FINDINGS: Lower thorax: Paraseptal emphysematous change. Moderate coronary artery calcification. Aortic valve c alcification. Liver: Normal. Biliary/Gallbladder: Gallbladder is absent. No bile duct dilation. Pancreas: Fatty atrophy. Spleen: Normal. Adrenals:No mass. Kidneys: No mass, stone, or hydronephrosis. GI tract: No small or large bowel dilation. Appendix surgically absent. Right colectomy. Diverticulos is without diverticulitis. Mesentery/Peritoneum: No ascites, mass, or free air. Portosystemic shunt in the midabdomen as can be seen with portal hypertension. Retroperitoneum: No mass. Atherosclerotic abdominal aortic and/or arterial calcifications. Pelvis: Pelvic organs are within normal limits. Soft Tissues: Soft tissues and body wall unremarkable. Uncomplicated appearing small bilateral fat-co ntaining inguinal hernias Bones: No acute osseous finding. IMPRESSION: No acute abdominopelvic process detected. Chronic and incidental findings detailed above. Reviewed, dictated and finalized at location K. MAN IMPRESSION: No acute abdominopelvic process detected. Chronic and incidental findings detai led above.
[2022-08-26 16:55] VITALS: BP 147/67; PULSE 64; RESP 16; TEMP 36.4; O2SAT 99
[2022-08-26 17:45] LABS: Basophils Absolute Auto 0.1 K/mm3 (0.0-0.1); Basophils Percent Auto 0.8 % (0.2-1.2); Eosinophils Absolute Auto 0.2 K/mm3 (0-0.3); Eosinophils Percent Auto 2.8 % (0-4.4); Hemoglobin 12.8 g/dL (14.0-18.0); Immature Granulocyte Absolute 0.06 K/mm3 (0.00-0.031); Lymphocytes Absolute Auto 1.43 K/mm3 (0.9-3.2); Lymphocytes Percent Auto 23.8 % (18.3-44.2); Mean Corpuscular HGB Conc 32.8 g/dl (32-36); Mean Corpuscular Hemoglobin 31.6 pg (26-34); Mean Corpuscular Volume 96.3 fl (80-100); Monocytes Absolute Auto 0.5 K/mm3 (0.1-0.6); Monocytes Percent Auto 8.5 % (2.6-8.5); Neutrophils Absolute Auto 3.8 K/mm3 (1.3-6.7); Neutrophils Percent Auto 63.1 % (45.5-73.1); Platelet Count Result 166 k/mm3 (150-375); Red Blood Count 4.05 M/mm3 (4.6-6.20); Red Cell Distribution Width 14.9 % (11.5-14.5)
[2022-08-26 18:08] LABS: Alanine Aminotransferase 13 U/L (6-50); Alkaline Phosphatase 88 U/L (38-126); Anion Gap 8 mmol/L (8-16); Aspartate Amino Transferase 19 U/L (17-59); Bilirubin,Total 0.7 mg/dL (0.2-1.3); Blood Urea Nitrogen 22 mg/dL (9-20); Calcium 8.8 mg/dL (8.4-10.2); Carbon Dioxide 23 mmol/L (22-30); Chloride 107 mmol/L (98-107); Estimated CRCL calculation 33 ml/min; Estimated Glomerular Filt Rate 31; Glucose 118 mg/dL (65-110); Lipase 146 U/L (23-300); Potassium 4.9 mmol/L (3.4-5.0); Sodium 138 mmol/L (137-145)
--- NOTE | 2022-08-26 19:30 | PC.NURSE ---
Pt. to hotel front desk agent asking RN how long until he will see a doctor. RN educated pt. that the wait times have been several hours due to boarded patients and an increase in sick patients.
--- NOTE | 2022-08-26 20:30 | PC.NURSE ---
pt. sitting in front of intake desk along with another individual. RN asked both individuals to have a seat over in the waiting room due to pt. privacy. While this RN was talking with both individuals. this pt. took a picture of this RN. This Rn asked pt. not to take staff pictures. Rn educated pt. it is against hospital policy to record or video in the hospital. pt. states too bad you are rude. RN apologized for pt. feeling that way. Pt. educated that pt. has to sit in designated waiting area. RN asked pt. a second time to delete the picture that he took. pt. repeated too bad you are rude. curb supervisor and security notified. housekeeping lead spoke w/ patient and requested that the picture be deleted. pt. states I will only delete it if it is recorded. curb supervisor agreed to relay information. pt. deleted picture of this RN
--- NOTE | 2022-08-26 21:20 | ED.ABDPAIN ---
HPI - Abdominal Pain General Chief Complaint: Abdominal Pain Stated Complaint: abd pain Time Seen by Provider: 08/26/22 21:09 History of Present Illness HPI narrative: Mr. Burr is 82-year-old gentleman who presented to the emergency room with complaints of right inguinal pain. Patient states the pain started 3 days ago. Patient states the pain only occurs at night when he is sitting in his recliner and he has not attempted to taken any [id number] medication to help with the pain. Patient states that he will go to bed and when he wakes up the pain will be gone. Patient states he is having normal bowel movements. Patient denies any dysuria, hematuria, frequency, or urgency. Patient states that he has palpated the area and is not able to feel any difference in comparison to his other groin area. Patient denies any fever or chills. Patient states he has been taking all home medications without any difficulty. Related Data Home Medications Medication Instructions Recorded Confirmed cholecalciferol (vitamin D3) 25 25 mcg PO DAILY 11/01/20 07/22/22 mcg (1,000 unit) capsule allopurinol 300 mg tablet 300 mg PO DAILY PRN Outbreak 09/01/21 07/22/22 azelastine 137 mcg (0.1 %) nasal 1 - 2 spray intranasal Q12H PRN 02/12/22 07/22/22 spray aerosol Allergy Symptoms nystatin 100,000 unit/gram topical 1 applic topical BID PRN Rash 02/12/22 07/22/22 powder simethicone 125 mg capsule 125 mg PO BID 02/12/22 07/22/22 Allergies Allergy/AdvReac Type Severity Reaction Status Date / Time ciprofloxacin Allergy Severe HE STATED Verified 08/26/22 16:55 HE HAD SOMETHING PRE OP AND WENT INTO SHOCK codeine AdvReac Severe constipatio Verified 08/26/22 16:55 n Review of Systems Review of Systems: A 12 point review of systems was completed patient all pertinent positive and negative per HPI the remainder are unremarkable. [facility] Past Medical History Medical History Adenocarcinoma of cecum (~10/2016) Status post right hemicolectomy. Arthritis Chronic anemia Chronic GERD Chronic kidney disease, stage 4 (severe) GFR of 28 in February 2020. Chronic rhinitis Essential hypertension Gastroesophageal reflux disease Gout H/O colon cancer, stage I Malignant neoplasm of prostate (~2008) Status post radiation. Paroxysmal atrial fibrillation Paroxysmal tachycardia Pre-diabetes Shingles (~05/2020) Surgical History Surgical History History of laparoscopic cholecystectomy (~06/2015) History of right hemicolectomy (~11/2016) Family History Family History Father Family history of lung cancer Father , Cancer No problems noted. Other Family history of dementia Social History Social History (Updated 07/22/22 @ 15:58 by Jazlyn Grijalva CMA) Social History: Surrogate decision maker: Milagro Burr, sister. Code status: Full code. Smoking packs per day: 2 Smoking cigarettes per day: 40.0 Years smoked: 37 Smoking pack-years: 74.00 Smoking status: Former smoker Tobacco type: cigarettes Smoking end date: 08/23/99 Alcohol intake: current Drinks per week: 7 Alcohol use details: 7 OZ [place]OUR[place] A WEEK Substance use: never Substance use type: does not use Last use: 09/09/21 Lack of Transportation: No Lack of Food: Never True Current Housing: I Have Housing Concerned About Future Housing: No Difficulty Paying Gas/Electric Bills: No Difficulty Paying for Meds: No Currently Unemployed: No Education: Trade/Vocational Certificate Difficulty w/ Childcare or Family Care: No Additional living arrangements comments: Lives alone in [place]. Gender identity (if verbalized by the patient): Male Sexual Orientation (if Verbalized by the Patient): Straight or Heterosexual Spiritual ca
[2022-08-26 21:26] VITALS: BP 167/74; PULSE 59; RESP 20; O2SAT 92
[2022-08-26 22:27] LABS: Add Urine Microscopic? YES; Appearance Urine Clear (Clear); Bilirubin Urine Negative (Negative); Blood Urine Negative (Negative); Color Urine Yellow (Yellow); Glucose Urine UA Negative (Negative); Ketones Urine Negative (Negative); Leukocyte Esterase Ur Negative LEU/UL (Negative); Nitrate Urine Negative (Negative); Protein Urine 1+ mg/dL (Negative); Specific Grav Ur 1.025 (1.001-1.035); Urobilinogen Urine 0.2 mg/dL (<2.0); pH Urine 5.5 (5.0-9.0)
[2022-08-26 22:39] LABS: Mucus Urine Rare /lpf; RBC Urine 0-2 /hpf (0-2); Squamous Epithelial Cell Urine Rare /hpf (Few)
[2022-08-26 22:53] VITALS: BP 148/65; PULSE 59; RESP 24; O2SAT 100
[2022-08-26 23:55] VITALS: BP 150/88; PULSE 80; RESP 22; TEMP 36.6; O2SAT 98
== END 2022-08-27 00:11 | disposition home or self-care (01) ==
PROVIDERS: Emergency Medicine; Emergency Provider Nurse Practitioner Adult Health; PCP Internal Medicine
DX: R10.31 Right lower quadrant pain (principal); B37.2 Candidiasis of skin and nail; I48.0 Paroxysmal atrial fibrillation; I12.9 Hypertensive chronic kidney disease with stage 1 through stage 4 chronic kidney disease, or unspecified chronic kidney disease; N18.4 Chronic kidney disease, stage 4 (severe); D64.9 Anemia, unspecified; M10.9 Gout, unspecified; K21.9 Gastro-esophageal reflux disease without esophagitis; Z85.46 Personal history of malignant neoplasm of prostate; R73.03 Prediabetes; Z90.49 Acquired absence of other specified parts of digestive tract; Z85.038 Personal history of other malignant neoplasm of large intestine; Z92.3 Personal history of irradiation; Z87.891 Personal history of nicotine dependence
CPT/HCPCS: 36415; 74176; 80053; 81001; 83690; 85025; 99284